=== PATIENT | male | born 1950 | race Caucasian/White ===

== ENCOUNTER → 2024-02-13 12:14 | Outpatient (REF) | payer OTHER, SELFPAY ==
[2024-02-13 13:36] LABS: % Basophils 0.4 % (0-2); % Eosinophils 7.7 % (0-6); % Immature Granulocytes 0.5 % (0-0.5); % Lymphocytes 21.8 % (20.5-51.1); % Monocytes 16.8 % (1.7-9.3); % Neutrophils 52.8 % (42.2-75.2); Absolute Eosinophils 0.6 10^3/uL (0-0.7); Absolute Lymphocytes 1.6 10^3/uL (1.2-3.4); Absolute Monocytes 1.3 10^3/uL (0.1-0.6); Absolute Neutrophils 3.9 10^3/uL (1.4-6.5); Hematocrit 24.6 % (39.0-52.0); Hemoglobin 7.5 g/dL (13.0-18.0); Mean Corp Hgb Conc. 30.5 g/dL (33.0-37.0); Mean Corpuscular Hgb 24.8 pg (27.0-31.0); Mean Corpuscular Volume 81.2 fL (80.0-94.0); Mean Platelet Volume 10.2 fL (7.4-10.4); Nucleated Red Blood Cells % 0 % (-); Platelet Count 228 10^3/uL (130-400); Red Blood Cell Count 3.03 10^6/uL (4.70-6.10); Red Cell Dist. Width 18.6 % (11.5-14.5); White Blood Cell Count 7.4 10^3/uL (4.8-10.8)
[2024-02-13 14:02] LABS: ALT (SGPT) 30 U/L (0-50); AST (SGOT) 42 U/L (17-59); Albumin 3.7 g/dl (3.5-5.0); Alkaline Phosphatase 71 U/L (38-126); Blood Urea Nitrogen 31 mg/dl (9-20); Calcium 8.9 mg/dl (8.4-10.2); Carbon Dioxide 25 mmol/L (22-30); Chloride 105 mmol/L (98-107); Glucose 92 mg/dl (70-99); HDL Cholesterol 92 mg/dl; LDL Cholesterol, Calculated 46 mg/dl; Potassium 4.6 mmol/L (3.5-5.1); Sodium 136 mmol/L (135-145); Total Bilirubin 0.5 mg/dl (0.2-1.3); Total Cholesterol 154 mg/dl (50-199); Total Protein 6.3 g/dl (6.3-8.2); Triglyceride 80 mg/dl (10-149); Very Low Density Lipoprotein 16 mg/dl (0-30); eGFR 53.07
[2024-02-13 14:27] LABS: TSH Reflex To Free T4 1.17 uIU/ml (0.47-4.68)
== END ==
LOC: REG 12:14
PROVIDERS: ATTENDING PHYSICIAN Internal Medicine Cardiovascular Disease; FAMILY PHYSICIAN Internal Medicine
DX: I25.118 Atherosclerotic heart disease of native coronary artery with other forms of angina pectoris (principal); I50.20 Unspecified systolic (congestive) heart failure; I48.0 Paroxysmal atrial fibrillation; R53.83 Other fatigue; R23.1 Pallor
CPT/HCPCS: 36415; 80053; 80061; 84443; 85025

== ENCOUNTER 2024-02-13 22:13 | Inpatient (IN) | payer OTHER, SELFPAY ==
[2024-02-13] VITALS (9 sets, daily range): BP systolic 106–151; BP diastolic 66–81; BMI 26.9
[2024-02-13] MEDS: PROTONIX IV 40 MG IV (19:40)
[2024-02-13 19:52] LABS: % Basophils 0.3 % (0-2); % Eosinophils 6.6 % (0-6); % Immature Granulocytes 0.3 % (0-0.5); % Lymphocytes 25.9 % (20.5-51.1); % Monocytes 16.7 % (1.7-9.3); % Neutrophils 50.2 % (42.2-75.2); Absolute Eosinophils 0.4 10^3/uL (0-0.7); Absolute Lymphocytes 1.7 10^3/uL (1.2-3.4); Absolute Monocytes 1.1 10^3/uL (0.1-0.6); Absolute Neutrophils 3.2 10^3/uL (1.4-6.5); Hematocrit 22.6 % (39.0-52.0); Hemoglobin 7.2 g/dL (13.0-18.0); Mean Corp Hgb Conc. 31.9 g/dL (33.0-37.0); Mean Corpuscular Hgb 25.3 pg (27.0-31.0); Mean Corpuscular Volume 79.3 fL (80.0-94.0); Mean Platelet Volume 9.6 fL (7.4-10.4); Nucleated Red Blood Cells % 0 % (-); Platelet Count 202 10^3/uL (130-400); Red Blood Cell Count 2.85 10^6/uL (4.70-6.10); Red Cell Dist. Width 18.5 % (11.5-14.5); White Blood Cell Count 6.4 10^3/uL (4.8-10.8)
--- NOTE | 2024-02-13 20:00 | ED.GENMED ---
History of Present Illness
General
Chief Complaint: Abnormal Lab Value
Source: patient and family
Exam Limitations: none
Time Seen by Provider: 02/13/24 18:51
Nursing documentation reviewed up to this point in time: agreed with
Travel History
Have you had any contact with someone who has COVID-19?: No
Do you have any symptoms of coronavirus? Fever > 100 degrees, chills, cough, shortness of breath, sore throat, loss of taste or smell, muscle aches, or headache?: No
History of Present Illness
History of Present Illness:
74-year-old male with a past medical history of hypertension, hyperlipidemia, CAD status post stent, atrial fibrillation, COPD who presents to the emergency room accompanied by his family for evaluation of fatigue and shortness of breath�was found
to have anemia by outpatient lab work. Patient reports she has had increased fatigue and paleness, shortness of breath for the past few weeks. 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
blood work and today he received a call that he was anemic. Referred to the emergency room. He has not had any chest pain. He has not had any abdominal pain. He has not had any black or bloody stools. He has not noticed any other bleeding. He
does take multiple blood thinners including Plavix and Eliquis.
Past History
Past History
ED Past Medical History: CAD, HTN and Hypothyroidism
ED Past Surgical History: Cardiac and Orthopedic (Total left knee)
Social History
Tobacco: Non-smoker
Alcohol: None
Drug: None
Personal:
Living: with family
Employment: Retired
Review of Systems
Review of Systems
All Other Systems: ROS reviewed and negative except as documented in HPI and ROS
Constitutional: Reports fatigue; Denies fever
Respiratory: Reports trouble breathing; Denies cough
Cardiac: Denies chest pain, palpitations or syncope
ABD/GI: Denies abdominal pain, nausea, vomiting, diarrhea, bloody stools or black stools
: Denies flank pain or bleeding
Musculoskeletal: Denies neck pain or back pain
Neurological: Denies headache, weakness or numbness
Phy Exam
Physical Exam
Physical Exam:
General: Awake, alert, oriented x3; no acute distress
Head: Normocephalic, atraumatic
Eyes: Pale conjunctiva
Throat: Airway intact, handling secretions
Neck: Trachea midline, supple without meningismus
Lungs: Clear to auscultation bilaterally, no wheezing, rales, rhonchi
Heart: Regular rate and rhythm, no murmurs, gallops, or rubs
Abd: Soft, non distended, nontender
Rectal: Dark brown stool, Hemoccult positive
Neuro: Cranial nerves grossly intact, speech fluid
Skin: Pale, no rash
Extremities: No edema in extremities, equal pulses in all extremities
Scores
Heart Failure Risk
Heart Failure Risk Score: Not Applicable
Heart Score for Chest Pain Patients
STEMI patient?: Not applicable
Withdrawal Assessment of Alcohol
Withdrawal Assessment Completed?: Not applicable
Course
Orders/Labs/Results
Orders:
Orders
02/13/24 17:51
Type+Screen Urgent
02/13/24 19:23
* Blood Bank Products Urgent
Blood Bank Products: *Packed RBC Leuko(PRBC's)
Quantity: 1
Transfuse Today: Yes
Reason: Anemia
Pantoprazole [Protonix IV] 40 mg IV NOW STA
02/13/24 19:38
Complete Blood Count/With Diff Urgent
Comprehensive Metabolic Panel Urgent
Ferritin Urgent
Fibrinogen Urgent
Folate Urgent
Haptoglobin [S] Urgent
Iron Urgent
Total Iron Binding Urgent
Vitamin B12 Urgent
Abnormal Lab Results
02/13/24 02/13/24
17:51 19:38
RBC 2.85 L 10^6/uL
(4.70-6.10)
Hgb 7.2 L g/dL
(13.0-18.0)
Hct 22.6 L %
(39.0-52.0)
MCV 79.3 L fL
(80.0-94.0)
MCH 25.3 L pg
(27.0-31.0)
MCHC 31.9 L g/dL
(33.0-37.0)
RDW 18.5 H %
(11.5-14.5)
Absolute Monos (auto) 1.1 H 10^3/uL
(0.1-0.6)
Monocytes % 16.7 H %
(1.7-9.3)
Eosinophils % 6.6 H %
(0-6)
Crossmatch IS Only See Detail
02/13/24 19:38
Vital Signs
Initial and Last Documented VS:
Initial Vital Signs
Temp Pulse Resp BP Pulse Ox
36.9 C 70 16 106/66 99
02/13/24 17:37 02/13/24 17:37 02/13/24 17:37 02/13/24 17:37 02/13/24 17:37
Last Documented Vital Signs
Temp Pulse Resp BP Pulse Ox
36.9 C 70 16 106/66 96
02/13/24 17:37 02/13/24 17:37 02/13/24 17:37 02/13/24 17:37 02/13/24 19:45
MDM/Problems Addressed
Differential Diagnosis Includes:
Symptomatic anemia�could be secondary to iron deficiency, B12/folate deficiency, slow GI bleeding,etc
MDM/Problems Addressed:
74-year-old male presents for progressive fatigue and shortness of breath over the past few weeks, found to be anemic as an outpatient on lab work. Vital signs are normal. Exam as above. We placed IV labs sent off including a CBC which confirmed
anemia at 7.2�this is decreased from a value of 7.5 on his outpatient labs yesterday; last hemoglobin for comparison was in September 2023 with a hemoglobin of 11. Sent CMP and type and screen. Will add iron studies, B12/folate, hemolysis labs.
Will plan to transfuse 1 unit of PRBCs for symptomatic anemia. Will treat with IV Protonix given his positive Hemoccult. Will admit for further evaluation and treatment. Discussed case with hospitalist.
Chronic conditions affecting care:
Cardiac history requiring multiple blood thinners�this complicates GI bleed and anemia
Acute Exacerbation and/or Progression of Chronic Illness:
Acute on chronic anemia managed with blood transfusion
*Pulse Oximetry
Patient hypoxic: no
*Critical Care Note
Total Time (30-74mins, 75-104mins- exclusive of procedures): Not Applicable
Data Reviewed
Source: patient, records and family
Patient Management
Discussion with other providers: Hospitalist (Discussed with hospitalist)
Escalation/DeEscalation of care consider admission/obs:
Admission indicated
ED Attending Note
-
Portions of this chart may have been created with voice recognition software.� Occasional wrong word or��sound alike� substitutions may have occurred due to the inherent limitations of voice recognition software.
Discharge Plan
Departure
Patient Disposition: Admit
Date of Disposition: 02/13/24
Time of Disposition: 20:10
Admit to doctor: Pradeep
Presentation/result/management discussed w/ accepting MD/DO: Hospitalist
Discharge Problem:
Acute on chronic anemia, GI bleed
Prescriptions:
No Action
triamcinolone acetonide [Nasacort] 10.8 ML aerosol,spray
1 spray intranasal PRN PRN (Reason: allergies)
nitroglycerin 0.4 MG tablet, sublingual
0.4 mg sublingual [id number] PRN (Reason: chest pain) Qty: 25 2RF
isosorbide mononitrate 30 mg Tablet Extended Release 24 Hr
30 mg PO DAILY
montelukast [Singulair] 10 mg Tablet
10 mg PO DAILY
acetaminophen [Tylenol] 325 mg Tablet
650 mg PO Q4HPRN PRN (Reason: mild pain)
atorvastatin 40 mg Tablet
40 mg PO QPM 30 Days Qty: 30 2RF
aspirin 81 mg Tablet,Chewable
81 mg PO DAILY 7 Days Qty: 7 0RF
Rx Instructions:
TAKE FOR 1 WEEK AND THEN STOP
clopidogrel 75 mg Tablet
75 mg PO DAILY 30 Days Qty: 30 2RF
amiodarone 200 mg Tablet
200 mg PO DAILY Qty: 0 0RF
metoprolol succinate [Toprol XL] 50 mg tablet extended release 24 hr
50 mg PO QPM Qty: 0 0RF
Eliquis 5 mg Tablet
5 mg PO BID Qty: 0 0RF
fluticasone furoate-vilanterol [Breo Ellipta] 100-25 mcg/dose Blister With Device
1 inh INHALATION R DAILY Qty: 0 0RF
furosemide [Lasix] 40 mg tablet
40 mg PO DAILY Qty: 30 2RF
pantoprazole 40 mg Tablet,Delayed Release (Dr/Ec)
40 mg PO DAILY 30 Days Qty: 30 2RF
Referrals:
Sandhya Underwood DO [Family Provider] -
Interventions
Interventions:
*Risk Screen - Suicide Last Done: 02/13/24 17:42
*General Assessment Last Done: 02/13/24 17:42
*Neglect/Abuse Screening Last Done: 02/13/24 17:42
ED- Fall Risk Assessment Last Done: 02/13/24 19:49
Discharge Date and Time
Print Language: JORDANIAN
[2024-02-13 20:02] LABS: Fibrinogen 422 MG/DL (199-459)
[2024-02-13 20:06] LABS: ALT (SGPT) 28 U/L (0-50); AST (SGOT) 43 U/L (17-59); Albumin 3.7 g/dl (3.5-5.0); Alkaline Phosphatase 79 U/L (38-126); Blood Urea Nitrogen 34 mg/dl (9-20); Calcium 8.9 mg/dl (8.4-10.2); Carbon Dioxide 22 mmol/L (22-30); Chloride 105 mmol/L (98-107); Estimated Creatinine Clearance 40 ml/min; Glucose 86 mg/dl (70-99); Iron 31 ug/dl (49-181); Potassium 4.3 mmol/L (3.5-5.1); Sodium 135 mmol/L (135-145); Total Bilirubin 0.6 mg/dl (0.2-1.3); Total Protein 6.3 g/dl (6.3-8.2); eGFR 39.25
--- NOTE | 2024-02-13 20:09 | HPS.HSE ---
Family Physician
-
Family Physician: Sandhya Underwood
Chief Complaint
-
Fatigue
History of Present Illness
74-year-old male complaining of fatigue for the past several months. He had a routine cardiology appointment yesterday where his reported that he looked pale to her. He had outpatient lab work done yesterday and was referred to the ER for
anemia. He denies black or bloody stool although was heme positive brown in the emergency department. He denies history of endoscopy or colonoscopy/hemorrhoids. He denies headache, sore throat, chest pain, palpitations, shortness of breath,
cough, abdominal pain, nausea, vomiting, diarrhea, blood in urine or stool. He has
PMH A-fib on Eliquis, CAD/CABG January 2020 x 3 vessel, [place] with circumflex stent 08/12/2022, HTN, HLD, mitral regurg, cardiomyopathy EF 44-55%, COPD, gout, osteoarthritis, BEAVER
Medical History
Past Medical History
Past Medical History: Reports Other
Additional Past Medical History:
A-fib on Eliquis,
CAD/CABG January 2020 x 3 vessel,
[place]
HTN
HLD
mitral regurg
cardiomyopathy EF 44-55%
COPD
gout
osteoarthritis
BEAVER
Past Surgical History: Reports Other
Additional Past Surgical History:
CABG x 3 vessel January 2020
Cardiac stent
Left knee replacement 04/11/2022
Right knee replacement 06/21/2022
Bilateral cataract extraction
Social History
Tobacco: Non-smoker
Alcohol: None
Drug: None
Family History
Family History: Other (Father CVA mother age 82 breast CA)
Allergies / Home Medications
Allergies reflects when Allergies were last updated in [facility].
Home Medications with original date entered in [facility]
Allergy/Medication List:
Allergies
Allergy/AdvReac Type Severity Reaction Status Date / Time
valsartan [From Diovan] Allergy Hives Verified 02/13/24 17:35
Home Medications
isosorbide mononitrate 30 mg tablet,extended release 24 hr 30 mg PO DAILY ANGINA 03/30/22
montelukast 10 mg tablet (Singulair) 10 mg PO HSPRN PRN allergies 03/30/22
apixaban 5 mg tablet (Eliquis) 5 mg PO BID Arrhythmia #0 tabs 08/22/22
fluticasone furoate 100 mcg-vilanterol 25 mcg/dose inhalation powder (Breo Ellipta) 1 inh inhalation R DAILY Lung/breathing issues #0 ea 08/22/22
furosemide 40 mg tablet (Lasix) 40 mg PO DAILY Heart failure #30 tabs 08/23/22
pantoprazole 40 mg tablet,delayed release 40 mg PO DAILY Gastrointestinal issue 30 days #30 tabs 08/23/22
Vitamin B Complex 50 1 tab PO Q48H@0800 02/13/24
ascorbic acid (vitamin C) 1,000 mg tablet (Vitamin C) 1,000 mg PO Q48H@0800 02/13/24
aspirin 81 mg tablet,delayed release 81 mg PO HS 02/13/24
atorvastatin 40 mg tablet 40 mg PO SUWE@2200 High cholesterol 02/13/24
cholecalciferol (vitamin D3) 50 mcg (2,000 unit) tablet 50 mcg PO Q48H@0800 02/13/24
ezetimibe 10 mg tablet 10 mg PO DAILY 02/13/24
furosemide 40 mg tablet 60 mg PO DAILY PRN if weight>191 lbs 02/13/24
metoprolol succinate 50 mg tablet,extended release 24 hr (Toprol XL) 50 mg PO HS Arrhythmia 02/13/24
spironolactone 25 mg tablet 25 mg PO DAILY 02/13/24
therapeutic multivitamin 1 tab PO Q48H@0800 02/13/24
triamcinolone acetonide 55 mcg nasal spray aerosol (Nasacort) 2 spray intranasal HSPRN PRN allergies 02/13/24
vitamin A 15 mg PO Q48H@0800 02/13/24
vitamin E (dl, acetate) 180 mg (400 unit) capsule 180 mg PO Q48H@0800 02/13/24
Review of Systems
-
History Source: Patient and Family ( at bedside)
A 12 point ROS was completed and negative except as noted: Yes
Constitutional: Reports Fatigue; Denies Fever or Chills
EENT: Denies Sore Throat or Runny Nose
Respiratory: Denies Cough or Trouble Breathing
Cardiac: Denies Chest Pain, Diaphoresis, Palpitations or Syncope
Abdomen/GI: Denies Abdominal Pain, Nausea, Vomiting, Diarrhea, Constipated, Bloody Stools or Black Stools
: Denies Dysuria, Frequency, Flank Pain, Incontinence, Difficulty Voiding or Urgency
Musculoskeletal: Denies Joint Pain or Edema
Skin: Denies Itching or Rash
Neurological: Denies Dizzy, Headache or Weakness
Endocrine: Reports No Symptoms
Hematologic/Lymphatic: Reports No Symptoms
Psych: Reports Calm
Physical Exam
Vital Signs
Vital Signs
Temp Pulse Resp BP Pulse Ox
98.4 F 70 16 106/66 96
02/13/24 17:37 02/13/24 17:37 02/13/24 17:37 02/13/24 17:37 02/13/24 19:45
Physical Exam
General: Comfortable and Conversant; No Pain, Fever or Chills
HEENT: NormoCephalic, Anicteric, PERRLA, No Ptosis and Other (Pale conjunctiva)
Respiratory: Clear; No Wheezes, Rales or Rhonchi
Cardiac: S1/S2, Regular Rhythm and Murmur (3/6 systolic murmur); No Rub, Gallop or Peripheral Edema
Breast: Deferred by me
GI: Soft, Non Distended, Normal Bowel Sounds and No Hepatosplenomegaly
Rectal: Deferred by Provider
Musculoskeletal: No Clubbing, No Cyanosis and No Edema
Skin: Warm, Dry and Other (Pale in color); No Rash or Jaundice
Neuro: AO x 3, No Motor Deficits, Nonfocal/grossly intact, Cranial Nerves Intact and No Sensory Deficits; No Slurred Speech or Facial Droop
Psych: Calm
Laboratory Results
-
02/13/24 19:38
02/13/24 19:38
Laboratory Results
Total Bilirubin 0.6 mg/dl (0.2-1.3) 02/13/24 19:38
AST 43 U/L (17-59) 02/13/24 19:38
ALT 28 U/L (0-50) 02/13/24 19:38
Alkaline Phosphatase 79 U/L (38-126) 02/13/24 19:38
Impression/Plan
-
Impression/plan:
Admit to telemetry
#Symptomatic anemia/GI bleed on Eliquis/Plavix
Heme positive brown stool
Hgb 7.2/MCV 79.3 prior 11.27 September 2022
-Check iron panel, B12, folate
-Type and screen, blood consent obtained in ER
-Transfuse 1 unit PRBC
-Follow CBC
#Iron deficiency anemia
-Iron 31, iron sat 6%
-IV Ferrlecit in a.m.
#Heme positive brown stool with anemia concern for GI bleed
-Hold Eliquis,
-Transfuse 1 unit PRBC
-IV PPI twice daily
-Consult GI
#ATUL on CKD 3A
Creat 1.8 was 1.4 earlier today 12:27 PM)
-IV NSS 80 cc/hr x 1 liter
#A-fib paroxysmal
-Hold Eliquis
-Continue amiodarone
-Continue Toprol XL with hold parameters
#Chronic CHF/ chronic Cardiomyopathy EF 44-55%
i/o , daily weight
Hold Lasix, spironolactone due to current hypotension
2D echo 01/21/2023: EF 45-50%, mild reduced LVSF, mild inferior and anterior septal hypokinesis, severe left atrial enlargement. Moderate MR
#HTN-benign
BP 106/66
Hold Imdur, Lasix, spironolactone
#CABG x 3 vessel January 2020
#Cardiac stent circumflex 08/12/2022
-Hold aspirin ,Eliquis,
-Continue atorvastatin 40 mg every afternoon
-Hold Imdur 30 mg daily given soft BP 106 systolic
# HLD
-Continue statin
#Mitral regurg hx
#COPD-no acute exacerbation
-Continue Breo Ellipta
Other PMH:
Gout
Osteoarthritis
BEAVER
DVT prophylaxis
SCDs, hold Eliquis
Full code
[2024-02-13 20:15] LABS: Percent Saturation 6 % (20-50); Total Iron Binding Capacity 503 ug/dl (261-462)
[2024-02-13 20:41] LABS: Ferritin 7.1 ng/ml (17.9-464.0)
--- NOTE | 2024-02-13 20:50 | W.PN.UPDATE ---
Update Note
Progress Note Update
This is an addendum to the H&P written by ABHI De La Rosa on 02/13/2024.
Patient seen examined independently with BULLET [employer]IC[employer] MIXER.
74-year-old male past medical history of CAD status post CABG x 2, ischemic cardiomyopathy, chronic HFrEF, moderate to severe mitral regurgitation, paroxysmal atrial fibrillation on Eliquis, CKD stage II, hypothyroidism, COPD, presenting for fatigue
and shortness of breath secondary to anemia found on outpatient labs. Denies chest pain, abdominal pain, black or bloody stools.
Stool is brown and heme positive. Hemoglobin of 7.2 from baseline of 9-11 previously. Iron studies compatible with iron deficiency anemia. Labs also show ATUL with creatinine 1.8. 1 unit of blood. B12 and folate pending. Patient likely has
occult GI blood loss due to Eliquis/Plavix. Hold Plavix, Eliquis. IV Protonix 40 twice daily. Clear liquid diet, n.p.o. past midnight. GI consulted. IV iron for tomorrow.
IV fluids for ATUL. Hold Lasix.
[2024-02-13 21:12] LABS: Folate > 20.0 ng/ml (2.76-20); Vitamin B12 573 pg/ml (239-931)
[2024-02-13] MEDS: TOPROL XL 50 MG PO (22:57)
[2024-02-13] MEDS: NSS 1000 IV (22:58)
--- NOTE | 2024-02-13 23:00 | PTCARENOTE ---
Received patient from ED via stretcher accompanied by ED RN. Patient ambulated self into bed without difficulty. Nursing assessment completed and as documented. 1 unit PRBC infusing via R PIV, transfusion completed see TAR for documentation.
Oriented to room, instructed use of call corona and within reach, care ongoing.
[2024-02-14] VITALS (8 sets, daily range): BP systolic 114–158; BP diastolic 65–87; PULSE 64–65; O2SAT 98; BMI 26.5
[2024-02-14 05:31] LABS: % Basophils 0.3 % (0-2); % Immature Granulocytes 0.5 % (0-0.5); % Lymphocytes 28.4 % (20.5-51.1); % Monocytes 15.9 % (1.7-9.3); % Neutrophils 47.9 % (42.2-75.2); Absolute Eosinophils 0.5 10^3/uL (0-0.7); Absolute Lymphocytes 1.8 10^3/uL (1.2-3.4); Absolute Neutrophils 3.1 10^3/uL (1.4-6.5); Hematocrit 24.2 % (39.0-52.0); Hemoglobin 7.5 g/dL (13.0-18.0); Mean Corpuscular Hgb 25.4 pg (27.0-31.0); Mean Platelet Volume 9.6 fL (7.4-10.4); Nucleated Red Blood Cells % 0 % (-); Platelet Count 176 10^3/uL (130-400); Red Blood Cell Count 2.95 10^6/uL (4.70-6.10); White Blood Cell Count 6.4 10^3/uL (4.8-10.8)
[2024-02-14 06:07] LABS: ALT (SGPT) 24 U/L (0-50); AST (SGOT) 36 U/L (17-59); Alkaline Phosphatase 65 U/L (38-126); Blood Urea Nitrogen 32 mg/dl (9-20); Calcium 8.7 mg/dl (8.4-10.2); Carbon Dioxide 22 mmol/L (22-30); Chloride 109 mmol/L (98-107); Estimated Creatinine Clearance 48 ml/min; Glucose 97 mg/dl (70-99); Potassium 4.1 mmol/L (3.5-5.1); Sodium 137 mmol/L (135-145); Total Bilirubin 1.7 mg/dl (0.2-1.3); Total Protein 5.5 g/dl (6.3-8.2); eGFR 48.85
[2024-02-14] MEDS: B COMPLEX w/VITAMIN C 1 CAPLET PO (07:50)
[2024-02-14] MEDS: PROTONIX IV 40 MG IV ×2 (07:51→20:35)
[2024-02-14] MEDS: THERAGRAN 1 TABLET PO (07:51)
[2024-02-14] MEDS: ZETIA 10 MG PO (07:51)
[2024-02-14] MEDS: VITAMIN C 1000 MG PO (07:51)
[2024-02-14] MEDS: NSS (PRESERVATIVE FREE) 10 ML IV ×2 (07:51→20:36)
[2024-02-14] MEDS: VITAMIN D3 (cholecalciferol) 50 MCG PO (07:51)
[2024-02-14 08:29] LABS: Direct Bilirubin 0.4 mg/dl (0.0-0.4)
--- NOTE | 2024-02-14 09:04 | CON.GI ---
Addendum entered and electronically signed by Coco Chi Do, MD 02/14/24 16:30:
I saw and examined the patient.
The PRICE CHANGER's note was reviewed and I agree with the note.
Comment: Nj is a 74yo M with h/o CABG x3 and PCI 07/2022 on eliquis for afib who was admitted for symptomatic iron def anemia with brown heme + stools. No overt black or red blood in stools. VSS NTTP NABS. Labs reviewed with iron def anemia.
normal vit b12 and folate
Impression
- symptomatic iron def anemia with heme + stools
no prior EGD/colon
differential includes ectasias, ulcer or occult malignancy/polyps
- afib on AC
- CABG
- CAD s/p stent
- HTN
- COPD
Recommendations
- Repeat H/H stable after 1u PRBC transfusion
- IV iron x1 today
- Adv to regular diet
- Appreciate cardiology recs
- Hold eliquis, c/w ASA 81mg daily
- Plan for EGD/colonoscopy outpatient basis with Dr Benitez 02/17 at 1pm. prep escribed and instructions emailed. I personally spoke to his and patient to go over prep instructions. They expressed understanding
- Ok from GI perspective for hosp d/c today with above close FU
Above d/w hospitalist pt family and cardiology.
62mins total spent with pt counseling and coordinating above care
Original Note:
Consultation
-
Date/Time Consultation Requested: 02/13/242199
Date/Time Consultation Performed: 02/14/24 0930
Requesting Provider: Catina MCELROY
Performing Provider: Dr. Valerio / Samira Justin PA-C
Reason for Consultation: anemia
Medical History
Chief Complaint / HPI
Chief Complaint: anemia
History of Present Illness:
This is a 74 year old male with a past medical history of atrial fibrillation (on Eliquis), CAD/TX (s/p CABGx3 and stent placement), HTN, hyperlipidemia, CHF, cardiomyopathy, COPD, osteoarthritis, and gout who presented to the hospital with anemia
seen on outpatient labs. Hemoglobin 7.2 in the ER, was 11.5 in September 2023. He does complain of fatigue and shortness of breath. CBC also showed microcytic indices and iron studies were all consistent with iron-deficiency anemia. He was transfused
1 unit PRBCs. He denies any melena or hematochezia; stool noted to be brown, heme positive. He denies any abdominal pain, nausea, vomiting, heartburn/reflux, diarrhea, constipation or weight loss. He has never had an endoscopy or colonoscopy. There
is no known family history of GI malignancies.
Past Medical History
Past Medical History: CAD, CHF, COPD, HTN, Hypercholesterolemia, [place] and Other (atrial fibrillation (on Eliquis), cardiomyopathy, osteoarthritis, gout)
Past Surgical History: Other (CABGx3 January 2020, cardiac stent 07/2022, bilateral knee replacements, cataracts)
Social History
Tobacco: Non-Smoker
Alcohol: Daily (1 beer each night)
Drug: None
Personal:
Living: With Family
Family History
Family History: Other (No family history of GI malignancies)
Allergies / Home Medications
Allergy/AdvReac Type Severity Reaction Status Date / Time
valsartan [From Diovan] Allergy Hives Verified 02/13/24 17:35
�Medication �Instructions �Recorded
isosorbide mononitrate 30 mg 30 mg PO DAILY ANGINA 03/30/22
tablet,extended release 24 hr
montelukast 10 mg tablet 10 mg PO HSPRN PRN allergies 03/30/22
(Singulair)
apixaban 5 mg tablet (Eliquis) 5 mg PO BID Arrhythmia #0 tabs 08/22/22
fluticasone furoate 100 1 inh inhalation R DAILY 08/22/22
mcg-vilanterol 25 mcg/dose Lung/breathing issues #0 ea
inhalation powder (Breo Ellipta)
furosemide 40 mg tablet (Lasix) 40 mg PO DAILY Heart failure #30 08/23/22
tabs
pantoprazole 40 mg tablet,delayed 40 mg PO DAILY Gastrointestinal 08/23/22
release issue 30 days #30 tabs
Vitamin B Complex 50 1 tab PO Q48H@0802/13/24
ascorbic acid (vitamin C) 1,000 mg 1,000 mg PO Q48H@0802/13/24
tablet (Vitamin C)
aspirin 81 mg tablet,delayed 81 mg PO HS 02/13/24
release
atorvastatin 40 mg tablet 40 mg PO SUWE@2200 High cholesterol 02/13/24
cholecalciferol (vitamin D3) 50 50 mcg PO Q48H@0802/13/24
mcg (2,000 unit) tablet
ezetimibe 10 mg tablet 10 mg PO DAILY 02/13/24
furosemide 40 mg tablet 60 mg PO DAILY PRN if weight>191 02/13/24
lbs
metoprolol succinate 50 mg 50 mg PO HS Arrhythmia 02/13/24
tablet,extended release 24 hr
(Toprol XL)
spironolactone 25 mg tablet 25 mg PO DAILY 02/13/24
therapeutic multivitamin 1 tab PO Q48H@0802/13/24
triamcinolone acetonide 55 mcg 2 spray intranasal HSPRN PRN 02/13/24
nasal spray aerosol (Nasacort) allergies
vitamin A 15 mg PO Q48H@0802/13/24
vitamin E (dl, acetate) 180 mg 180 mg PO Q48H@0802/13/24
(400 unit) capsule
Review of Systems
-
History Source: Patient
All other systems: A 12 pt ROS was Negative except as stated above in HPI
Vital Signs
Temp Pulse Resp BP Pulse Ox
98.7 F 61 16 126/75 95
02/14/24 07:30 02/14/24 07:30 02/14/24 07:30 02/14/24 07:30 02/14/24 07:30
Physical Exam
Exam
General: Well Developed, Well Nourished and No Apparent Distress
Respiratory: Clear
Cardiac: Regular Rhythm
GI: Soft, Non Tender, Non Distended and Normal Bowel Sounds
Rectal: Other (brown, heme positive on ER exam)
Skin: Warm and Dry
Neuro: AO x 3
Psych: Calm
Results
WBC 6.4 10^3/uL (4.8-10.8) 02/14/24 05:14
Hgb 7.5 g/dL (13.0-18.0) L 02/14/24 05:14
Hct 24.2 % (39.0-52.0) L 02/14/24 05:14
MCV 82.0 fL (80.0-94.0) 02/14/24 05:14
Plt Count 176 10^3/uL (130-400) 02/14/24 05:14
Absolute Neuts (auto) 3.1 10^3/uL (1.4-6.5) 02/14/24 05:14
Sodium 137 mmol/L (135-145) 02/14/24 05:14
Potassium 4.1 mmol/L (3.5-5.1) 02/14/24 05:14
Chloride 109 mmol/L (98-107) H 02/14/24 05:14
Carbon Dioxide 22 mmol/L (22-30) 02/14/24 05:14
BUN 32 mg/dl (9-20) H 02/14/24 05:14
Creatinine 1.5 mg/dL (0.7-1.3) H 02/14/24 05:14
Calcium 8.7 mg/dl (8.4-10.2) 02/14/24 05:14
Total Bilirubin 1.7 mg/dl (0.2-1.3) H D 02/14/24 05:14
AST 36 U/L (17-59) 02/14/24 05:14
ALT 24 U/L (0-50) 02/14/24 05:14
Alkaline Phosphatase 65 U/L (38-126) 02/14/24 05:14
Diagnostic Image Results:
Prior GI Procedures:
EGD: never
Colonoscopy: never
Assessment / Plan
-
This is a 74 year old male with a past medical history of atrial fibrillation (on Eliquis), CAD/TX (s/p CABGx3 and stent placement), HTN, hyperlipidemia, CHF, cardiomyopathy, COPD, osteoarthritis, and gout who presented to the hospital with anemia
seen on outpatient labs. Hemoglobin 7.2 in the ER, was 11.5 in September 2023. He does complain of fatigue and shortness of breath. CBC also showed microcytic indices and iron studies were all consistent with iron-deficiency anemia. He was transfused
1 unit PRBCs. He denies any melena or hematochezia; stool noted to be brown, heme positive. He denies any abdominal pain, nausea, vomiting, heartburn/reflux, diarrhea, constipation or weight loss. He has never had an endoscopy or colonoscopy. There
is no known family history of GI malignancies. Last dose of Eliquis: 02/13/24 in the AM.
IMPRESSION / PLAN:
Iron-deficiency anemia, heme positive stools on Eliquis and ASA, suspect GI bleed
-s/p transfusion 1 unit PRBCs on 02/12
-Hgb 7.5 today, on admission 02/12 was 7.2
-continue to trend hemoglobin; transfuse if falls below 7
-IV iron has been ordered
-Hold Eliquis - last dose was 02/12 AM
-plan for EGD/colonoscopy - tentatively planned as outpatient on 02/18/24
-will request cardiac risk stratification prior to endoscopic procedures with Eliquis hold
Other medical problems managed as per hospitalist. We will follow.
-
-
Thank you for consultation and allowing me to participate in the patient's care. Please call the education supervisor GI physician during the after hours with any questions or concerns.
--- NOTE | 2024-02-14 10:04 | PTOTSP ---
PATIENT ABLE TO MOBILIZE INDEPENDENTLY ON LEVEL SURFACES WELL ELEVATIONS WITH NO COMPLAINTS OF LIGHTHEADEDNESS, DIZZINESS OR SHORTNESS OF BREATH. VITALS STABLE. RN AWARE. PATIENT REQUIRING NO FURTHER ACUTE CARE SKILLED P.T. AT THIS TIME.
ENCOURAGED PATIENT TO CONTINUE AMBULATING IN THE HALLS. WILL DISCHARGE FROM P.T. SERVICES.
--- NOTE | 2024-02-14 10:33 | W.PN.HOSP.TC ---
Addendum entered and electronically signed by Lai Neri MD 02/14/24 16:39:
plan to resume lasix and spironolactone tomorrow if bp is stable
Original Note:
Today's Communication/Plan
-
monitor hgb, repeat cbc today and tomorrow - trend
cards consulted for clearance of low risk procedure and consideration of holding Eliquis +/- ASA
Assessment / Plan
Assessment / Plan
Physical Exam
General: Comfortable and Conversant; No Pain, Fever or Chills
HEENT: NormoCephalic, Anicteric, PERRLA, No Ptosis
Respiratory: Clear; No Wheezes, Rales or Rhonchi
Cardiac: S1/S2, Regular Rhythm and Murmur (3/6 systolic murmur); No Rub, Gallop or Peripheral Edema
Breast: Deferred by me
GI: Soft, Non Distended, Normal Bowel Sounds and No Hepatosplenomegaly
Rectal: Deferred by Provider
Musculoskeletal: No Clubbing, No Cyanosis and No Edema
Skin: Warm, Dry; No Rash or Jaundice
Neuro: AO x 3, No Motor Deficits, Nonfocal/grossly intact, Cranial Nerves Intact and No Sensory Deficits; No Slurred Speech or Facial Droop
Psych: Calm
#Symptomatic anemia/GI bleed on Eliquis
#Iron Deficiency Anemia
Heme positive brown stool
-Transfuse 1 unit PRBC
-Follow CBC - repeat today
-IV Ferrlecit in a.m.
-Plan to hold Eliquis, plan for EGD/C-Scope next week
-Cards consulted as requested by GI for clearance of EGD/Scope and holding of eliquis
-IV PPI twice daily
-GI on board
#ATUL on CKD 3A
-possible -prerenal
-resolved s/p resuscitation
#Elevated Bili
-Elevated indirect
-possible gilberts, although f/u hapto/ldh
#A-fib paroxysmal
-Hold Eliquis
-Continue amiodarone
-Continue Toprol XL with hold parameters
#Chronic CHF/ chronic Cardiomyopathy EF 44-55%
i/o , daily weight
Hold Lasix, spironolactone as was hypotensive
-anticipate resuming soon if hgb remains stable
2D echo 01/21/2023: EF 45-50%, mild reduced LVSF, mild inferior and anterior septal hypokinesis, severe left atrial enlargement. Moderate MR
#HTN-benign
BP 106/66
Holding Imdur, Lasix, spironolactone - restart slowly if bps and hgb remain stable
#CABG x 3 vessel January 2020
#Cardiac stent circumflex 08/12/2022
-Hold aspirin ,Eliquis,; - defer to cards on restarting ASA
-Continue atorvastatin 40 mg every afternoon
-Hold Imdur 30 mg daily given soft BP 106 systolic
# HLD
-Continue statin
#Mitral regurg hx
#COPD-no acute exacerbation
-Continue Breo Ellipta
Other PMH:
Gout
Osteoarthritis
[place]
DVT prophylaxis
SCDs, hold Eliquis
Full code
Total time spent on today's encounter was 50 minutes which included time spent in counseling the patient/family regarding diagnosis and treatment plan as listed above, goals of care, and symptom management. Case was discussed with nursing staff,
specialists, and care coordinators/case management. All labs and imaging personally reviewed by me. Remainder the time spent in detailed review of previous records, lab data, imaging, and other medical provider documentation.
Anticipated Discharge: Within 24 hours
Subjective/Interval History
-
Date of Service: February 14, 2024
No evidence of acute GI bleed, suboptimal response with1 unit
Objective Data
-
Labs:
Laboratory Results
02/14/24
05:14
WBC 6.4
Hgb 7.5 L
Hct 24.2 L
Plt Count 176
Sodium 137
Potassium 4.1
Chloride 109 H
Carbon Dioxide 22
BUN 32 H
Creatinine 1.5 H
Glucose 97
Calcium 8.7
Total Bilirubin 1.7 H D
AST 36
ALT 24
Alkaline Phosphatase 65
Vital Signs:
Vital Signs
Temp Pulse Resp BP Pulse Ox
98.7 F 61 16 126/75 95
02/14/24 07:30 02/14/24 07:30 02/14/24 07:30 02/14/24 07:30 02/14/24 07:30
I&O
02/13/24 02/14/24 02/15/24
06:59 06:59 06:59
Intake Total 1050 / 1050
Output Total 500 / 500
Balance 550 / 550
Review of Systems
-
History Source: Patient
All other systems: Not reviewed unless documented
Physical Exam
-
General: Well Developed and No Apparent Distress
HEENT: Normocephalic, Atraumatic and Moist Mucous Membranes
Respiratory: Clear to Auscultation
Cardiac: Regular Rhythm, S1/S2 and Murmur; Negative Rub or Gallop
GI: Soft, Nontender, Nondistended and Normal Bowel Sounds; Negative Organomegaly
Musculoskeletal: No Clubbing, No Cyanosis and No Edema
Skin: Negative Rash
Neuro: Nonfocal/Grossly Intact
Psych: Calm
Data Reviewed
-
Labs: Labs Reviewed by me and Discussed with Patient
[2024-02-14 11:11] LABS: LDH 280 U/L (120-246)
--- NOTE | 2024-02-14 12:12 | CON.CAR ---
Addendum entered and electronically signed by Kwaku Vanegas MD 02/14/24 13:47:
I saw and examined the patient.
The [employer]SE[employer] OIL TEMPERER's note was reviewed and I agree with the note.
Comment: 74M with anemia/GIB in setting of ASA/apixaban.
- There is no cardiac contraindication to EGD/colonoscopy
- hold apixaban. D/w pt and daughter small risk of stroke off apixaban, which is outweighed by continued risk of bleeding
- Ideally, we would continue ASA since his LM stent supplies his LAD (which has patent [id number]) and LCx (unprotected) -> reached out to team and they agree ASA OK.
Original Note:
Consultation
Consultation Request
Date/Time Consultation Requested: 02/14/24 10:15a
Date/Time Consultation Performed: 02/14/24 11:45a
Requesting Provider: Dr. Neri
Performing Provider: LILIBETH Majano for Dr. Vanegas
Reason for Consultation: pre-op risk assessment for EGD/colonoscopy
Medical History
-
Chief Complaint: acute anemia
History of Present Illness:
Mr. Smith is a 73-year-old male with paroxysmal atrial fibrillation on Eliquis (previously on Amiodarone, stopped 06/[address] Mccoy), CAD status post CABG 01/2019, NSTEMI 07/2022 with PCI of 90% left main/ostial circumflex lesion and distal
70% proximal circumflex lesion, cardiomyopathy EF 35 to 40% post NSTEMI, moderate to severe mitral regurgitation, chronic HFrEF, HLD and hypertension, who presents to the ER with abnormal outpatient labs 02/13/24, hgb of 7.2 with c/o fatigue. He is
admitted to the hospitalist service for acute anemia, heme positive stool. We are consulted by GI for pre-op risk assessment prior to EGD/colonoscopy as he is on Eliquis and ASA. These are currently held given his acute anemia. He received 1 unit
PRBCs. Currently he denies any cardiac complaints.
Past Medical History
Past Medical History: Other (as above)
Past Surgical History: Other (as above)
Social History
Tobacco: Non-Smoker
Alcohol: None
Personal:
Living: With Family
Employment: Retired
Family History
Family History: Reviewed & Not Pertinent
Allergies / Home Medications
Allergy/AdvReac Type Severity Reaction Status Date / Time
valsartan [From Diovan] Allergy Hives Verified 02/13/24 17:35
�Medication �Instructions �Recorded �Confirmed �Type
isosorbide mononitrate 30 mg 30 mg PO DAILY ANGINA 03/30/22 02/13/24 History
tablet,extended release 24 hr
montelukast 10 mg tablet 10 mg PO HSPRN PRN allergies 03/30/22 02/13/24 History
(Singulair)
apixaban 5 mg tablet (Eliquis) 5 mg PO BID Arrhythmia #0 tabs 08/22/22 02/13/24 Rx
fluticasone furoate 100 1 inh inhalation R DAILY 08/22/22 02/13/24 Rx
mcg-vilanterol 25 mcg/dose Lung/breathing issues #0 ea
inhalation powder (Breo Ellipta)
furosemide 40 mg tablet (Lasix) 40 mg PO DAILY Heart failure #30 08/23/22 02/13/24 Rx
tabs
pantoprazole 40 mg tablet,delayed 40 mg PO DAILY Gastrointestinal 08/23/22 02/13/24 Rx
release issue 30 days #30 tabs
Vitamin B Complex 50 1 tab PO Q48H@0800 Supplement 02/13/24 02/13/24 History
ascorbic acid (vitamin C) 1,000 mg 1,000 mg PO Q48H@0800 Supplement 02/13/24 02/13/24 History
tablet (Vitamin C)
aspirin 81 mg tablet,delayed 81 mg PO HS Blood Clot 02/13/24 02/13/24 History
release Prevention/Tx
atorvastatin 40 mg tablet 40 mg PO SUWE@2200 High cholesterol 02/13/24 02/13/24 History
cholecalciferol (vitamin D3) 50 50 mcg PO Q48H@0800 Supplement 02/13/24 02/13/24 History
mcg (2,000 unit) tablet
ezetimibe 10 mg tablet 10 mg PO DAILY High Cholesterol 02/13/24 02/13/24 History
furosemide 40 mg tablet 60 mg PO DAILY PRN if weight>191 02/13/24 02/13/24 History
lbs
metoprolol succinate 50 mg 50 mg PO HS Arrhythmia 02/13/24 02/13/24 History
tablet,extended release 24 hr
(Toprol XL)
spironolactone 25 mg tablet 25 mg PO DAILY Fluid 02/13/24 02/13/24 History
Retention/Swelling
therapeutic multivitamin 1 tab PO Q48H@0800 Supplement 02/13/24 02/13/24 History
triamcinolone acetonide 55 mcg 2 spray intranasal HSPRN PRN 02/13/24 02/13/24 History
nasal spray aerosol (Nasacort) allergies
vitamin A 15 mg PO Q48H@0800 Supplement 02/13/24 02/13/24 History
vitamin E (dl, acetate) 180 mg 180 mg PO Q48H@0800 Supplement 02/13/24 02/13/24 History
(400 unit) capsule
Review of Systems
-
History Source: Patient
All other systems: Negative unless noted
Physical Exam
Vital Signs
Temp Pulse Resp BP Pulse Ox
98.7 F 61 16 126/75 95
02/14/24 07:30 02/14/24 07:30 02/14/24 07:30 02/14/24 07:30 02/14/24 07:30
Lab Results
02/14/24 05:14
02/14/24 05:14
Physical Exam
General: Well Developed, Well Nourished and No Apparent Distress
HEENT: Normocephalic and Moist Mucous Membranes
Respiratory: Clear
Cardiac: S1/S2 and Regular Rhythm
Breast: Deferred by me
GI: Soft, Non Tender and Normal Bowel Sounds
Rectal: Deferred by Provider
Genito-urinary: No Costovertebral Tender
Musculoskeletal: No Clubbing, No Cyanosis and No Edema
Skin: Warm and Dry
Neuro: AO x 3
Hematologic/Lymphatic: No Lymphadenopathy
Psych: Calm
Impression / Plan
-
Acute anemia - hgb 7.2 on 02/13/24.
- received 1 unit PRBCs and now hgb 7.5.
- holding Eliquis and ASA now (last dose was 02/13/24 morning).
- GI consulted and plans for outpatient EGD/colonoscopy Saturday02/18/24, requesting hold ASA and Eliquis now until then.
HFrEF/ICM - chronic, stable.
- continue GDMT.
- echo 01/21/23: EF 45-50%, mild inferior and anteroseptal hypokinesis, severe left atrial enlargement, moderate MR, mild to moderate , mild to moderate AI, PASP 45mmHg.
- compared with previous study 08/20/2022 there is overall improvement; EF was 35 to 40%, MR was moderate to severe, and PA pressure was 57 mmHg.
CAD - s/p CABG 2018.
- s/p NSTEMI with PCI of 90% LM and 70% prox circumflex lesions 07/2022.
- has been on ASA and Eliquis, will hold due to acute anemia as above.
Afib - paroxysmal.
- denies any palpitations or recurrence of A-fib.
- on Eliquis 5 mg twice daily, now with heme + stool and acute anemia. Eliquis on hold.
ATUL - acute.
- creat 1.8 on admit, now 1.5 today.
Data Reviewed
-
Medical Tests (Nuc Med, Echo etc): Report Reviewed by me (echo 01/21/23: EF 45-50%, mild inferior and anteroseptal hypokinesis, severe left atrial enlargement, moderate MR, mild to moderate , mild to moderate AI, PASP 45mmHg. )
Labs: Labs Reviewed by me
Old Records: Reviewed
[2024-02-14] MEDS: FERRLECIT 110 MG IV (14:31)
[2024-02-14 14:47] LABS: Hematocrit 27.4 % (39.0-52.0); Hemoglobin 8.6 g/dL (13.0-18.0)
--- NOTE | 2024-02-14 14:49 | CM ---
Alert awake oriented patient who lives with his Jil who lives in a 1 story home with 4 step to enter and bed and bathroom on first floor. He is independent in driving and in all activities of daily living.No adaptive devices.He was offered
VN he declined need.
[facility] hx / No SNF history
Pharmacy [facility]
PCP DR Sandhya Wheatley
PLAN Home Declined VN
[2024-02-14] MEDS: ALDACTONE 25 MG PO (17:39)
[2024-02-14] MEDS: LASIX 40 MG PO (17:39)
[2024-02-14] MEDS: TOPROL XL 50 MG PO (21:20)
[2024-02-14] MEDS: ASPIR LOW (ENTERIC COATED) 81 MG PO (21:21)
[2024-02-15 03:00] VITALS: BP 132/74
[2024-02-15 06:00] VITALS: BMI 25.6
[2024-02-15 07:35] VITALS: BP 121/72
[2024-02-15 07:47] LABS: % Basophils 0.5 % (0-2); % Eosinophils 8.8 % (0-6); % Immature Granulocytes 0.3 % (0-0.5); % Neutrophils 44.4 % (42.2-75.2); Absolute Eosinophils 0.5 10^3/uL (0-0.7); Absolute Lymphocytes 1.6 10^3/uL (1.2-3.4); Absolute Monocytes 1.1 10^3/uL (0.1-0.6); Absolute Neutrophils 2.6 10^3/uL (1.4-6.5); Hematocrit 26.2 % (39.0-52.0); Hemoglobin 8.3 g/dL (13.0-18.0); Mean Corp Hgb Conc. 31.7 g/dL (33.0-37.0); Mean Corpuscular Hgb 25.2 pg (27.0-31.0); Mean Corpuscular Volume 79.4 fL (80.0-94.0); Mean Platelet Volume 10.1 fL (7.4-10.4); Nucleated Red Blood Cells % 0 % (-); Platelet Count 201 10^3/uL (130-400); Red Cell Dist. Width 18.4 % (11.5-14.5); White Blood Cell Count 5.8 10^3/uL (4.8-10.8)
--- NOTE | 2024-02-15 08:26 | W.PN.CD ---
Addendum entered and electronically signed by Marcus Driscoll MD 02/15/24 11:35:
I saw and examined the patient.
The SHELLF[employer] PROCESSING LABORER's note was reviewed and I agree with the note.
Comment: OK for home and return for outpatient GI w/u. To stay off Eliquis for now. Once GI w/u complete his mending carrier and GI doc can better determine next steps for chronic antiplatelet/anticoagulant strategy. We will sign off. Call with
questions.
Original Note:
Today's Communication / Plan
-
OK for outpatient EGD/colonoscopy, continue ASA 81mg daily, hold Eliquis.
Impression / Plan
-
Acute anemia - hgb 7.2 on 02/13/24.
- received 1 unit PRBCs and now hgb 8.3 today.
- holding Eliquis (last dose was 02/13/24 morning).
- continuing ASA 81mg daily.
- GI consulted and plans for outpatient EGD/colonoscopy Saturday02/18/24, requesting hold ASA and Eliquis now until then.
HFrEF/ICM - chronic, stable.
- continue GDMT.
- echo 01/21/23: EF 45-50%, mild inferior and anteroseptal HK, severe left atrial enlargement, mod MR, mild/mod , mild/mod AI, PASP 45mmHg.
- compared with previous study 08/20/22, overall improvement; EF was 35-40%, MR was mod/severe, and PA pressure was 57 mmHg.
CAD - s/p CABG 2018.
- s/p NSTEMI with PCI of 90% LM and 70% prox circumflex lesions 07/2022.
- hold Eliquis, reviewed with patient/family small risk of stroke off Eliquis, which is outweighed by continued risk of bleeding.
- will continue ASA since his LM stent supplies his LAD (which has patent [id number]) and LCx (unprotected), GI agrees.
Afib - paroxysmal.
- denies any palpitations or recurrence of A-fib.
- on Eliquis 5 mg twice daily, now with heme + stool and acute anemia. Eliquis on hold.
ATUL - acute, creat 1.8 on admit.
- improved 1.5 yesterday, pending today.
Physical Exam
Vital Signs/Labs
Vital Signs
Temp Pulse Resp BP Pulse Ox
97.3 F 56 18 132/74 96
02/15/24 03:00 02/15/24 03:00 02/15/24 03:00 02/15/24 03:00 02/15/24 03:00
02/14/24 02/15/24 02/16/24
06:59 06:59 06:59
Actual Weight 88.507 kg 85.417 kg
02/15/24 06:57
Physical Exam
Constitutional: No acute distress
EENT: Anicteric and Moist mucous membranes
Cardiovascular: Rhythm & rate is regular
Respiratory: Respiratory effort normal and Lungs clear to auscul.
GI: Soft, Non tender and Normal bowel sounds
Neuro/Psych: AO x 3
Other: Skin (warm, dry)
Data Reviewed
-
Date of Service: February 15, 2024
Medical Decision Making: Reviewed Test Results
EKG: Tracing Personally Visualized and interpreted
Labs: Labs Reviewed by me
Old Records: Reviewed
[2024-02-15 08:36] LABS: ALT (SGPT) 28 U/L (0-50); AST (SGOT) 40 U/L (17-59); Albumin 3.4 g/dl (3.5-5.0); Alkaline Phosphatase 73 U/L (38-126); Blood Urea Nitrogen 26 mg/dl (9-20); Calcium 9.2 mg/dl (8.4-10.2); Carbon Dioxide 27 mmol/L (22-30); Chloride 103 mmol/L (98-107); Estimated Creatinine Clearance 56 ml/min; Glucose 83 mg/dl (70-99); Potassium 3.9 mmol/L (3.5-5.1); Sodium 137 mmol/L (135-145); eGFR 58.01
[2024-02-15] MEDS: ZETIA 10 MG PO (09:00)
[2024-02-15] MEDS: ALDACTONE 25 MG PO (09:01)
[2024-02-15] MEDS: LASIX 40 MG PO (09:01)
[2024-02-15] MEDS: PROTONIX IV 40 MG IV (09:01)
[2024-02-15] MEDS: NSS (PRESERVATIVE FREE) 10 ML IV (09:02)
--- NOTE | 2024-02-15 10:58 | W.PN.HOSP.TC ---
Addendum entered and electronically signed by Lai Neri MD 02/16/24 15:42:
[id number]
Original Note:
Today's Communication/Plan
-
resume antihypertensives/GDMT as BP stabilized
F/u BMP assessing renal function in 7 days
CBC next week with GI
Hold Eliquis, Continue ASA 81mg
Plan for 02/17 EGD/C-Scope - instructions given by GI
Assessment / Plan
Assessment / Plan
Physical Exam
General: Comfortable and Conversant; No Pain, Fever or Chills
HEENT: NormoCephalic, Anicteric, PERRLA, No Ptosis
Respiratory: Clear; No Wheezes, Rales or Rhonchi
Cardiac: S1/S2, Regular Rhythm and Murmur (3/6 systolic murmur); No Rub, Gallop or Peripheral Edema
Breast: Deferred by me
GI: Soft, Non Distended, Normal Bowel Sounds and No Hepatosplenomegaly
Rectal: Deferred by Provider
Musculoskeletal: No Clubbing, No Cyanosis and No Edema
Skin: Warm, Dry; No Rash or Jaundice
Neuro: AO x 3, No Motor Deficits, Nonfocal/grossly intact, Cranial Nerves Intact and No Sensory Deficits; No Slurred Speech or Facial Droop
Psych: Calm
#Symptomatic anemia/GI bleed on Eliquis
#Iron Deficiency Anemia
Heme positive brown stool
-Transfuse 1 unit PRBC
-Follow CBC - repeat today
-IV Ferrlecit in a.m.
-Plan to hold Eliquis, plan for EGD/C-Scope next week
-ASA 81mg can be continued
-PPI twice daily until cleared by GI
-GI on board
#ATUL on CKD 3A
-possible -prerenal
-resolved s/p resuscitation
#Elevated Bili
-Elevated indirect
-possible gilberts, although f/u hapto/ldh
-F/u Outpatient
#A-fib paroxysmal
-Hold Eliquis due to acute anemia- Fam aware of risks;
-Continue amiodarone
-Continue Toprol XL with hold parameters
#Chronic CHF/ chronic Cardiomyopathy EF 44-55%
i/o , daily weight
BP stabilized
Resume home medications
2D echo 01/21/2023: EF 45-50%, mild reduced LVSF, mild inferior and anterior septal hypokinesis, severe left atrial enlargement. Moderate MR
#HTN-benign
resume Imdur, Lasix, spironolactone
#CABG x 3 vessel January 2020
#Cardiac stent circumflex 08/12/2022
-Resume ASA, hold eliquis - family acknowledges risks/benefits
-Continue atorvastatin 40 mg every afternoon
-resume Imdur
# HLD
-Continue statin
#Mitral regurg hx
#COPD-no acute exacerbation
-Continue Breo Ellipta
Other PMH:
Gout
Osteoarthritis
[place]
DVT prophylaxis
SCDs, hold Eliquis
Full code
More than 30 minutes spent in discharge including
Final examination of the patient
Summarizing hospital stay
Instructions for continuing care to all relevant caregivers
Preparation of discharge records, prescriptions, and referral forms
Total time spent (35 in minutes):
Anticipated Discharge: Today
Subjective/Interval History
-
Date of Service: February 15, 2024
no acute events, hgb stable
Objective Data
-
Labs:
Laboratory Results
02/15/24
06:57
WBC 5.8
Hgb 8.3 L
Hct 26.2 L
Plt Count 201
Sodium 137
Potassium 3.9
Chloride 103
Carbon Dioxide 27
BUN 26 H
Creatinine 1.3
Glucose 83
Calcium 9.2
Total Bilirubin 1.0
AST 40
ALT 28
Alkaline Phosphatase 73
Vital Signs:
Vital Signs
Temp Pulse Resp BP Pulse Ox
97.9 F 53 17 121/72 97
02/15/24 07:35 02/15/24 07:35 02/15/24 07:35 02/15/24 07:35 02/15/24 07:35
I&O
02/14/24 02/15/24 02/16/24
06:59 06:59 06:59
Intake Total 1050 / 1050 720 / 720 600 / 600
Output Total 500 / 500
Balance 550 / 550 720 / 720 600 / 600
Review of Systems
-
History Source: Patient
All other systems: Not reviewed unless documented
Data Reviewed
-
Labs: Labs Reviewed by me and Discussed with Patient
--- NOTE | 2024-02-15 11:04 | W.DS.TRANS ---
DC Summary - [facility]
-
Discharge Instructions:
Discharge Diagnosis/Procedures Acute anemia
#Symptomatic anemia/GI bleed on Eliquis
#ATUL on CKD 3A
Diet Low Fat,Low Cholesterol,2 Gram Sodium
Activity As tolerated
Blood Work CBC as per GI next week (week of 02/16); BMP with
PCP in 7 days
Instructions:
Stand-Alone Forms:
Changes to Home Medications: Yes
Discharge Medications:
DC Medications w/original date entered in [employer]
isosorbide mononitrate 30 mg tablet,extended release 24 hr 30 mg PO DAILY ANGINA 03/30/22
montelukast 10 mg tablet (Singulair) 10 mg PO HSPRN PRN allergies 03/30/22
apixaban 5 mg tablet (Eliquis) 5 mg PO BID Arrhythmia #0 tabs 08/22/22
fluticasone furoate 100 mcg-vilanterol 25 mcg/dose inhalation powder (Breo Ellipta) 1 inh inhalation R DAILY Lung/breathing issues #0 ea 08/22/22
furosemide 40 mg tablet (Lasix) 40 mg PO DAILY Heart failure #30 tabs 08/23/22
pantoprazole 40 mg tablet,delayed release 40 mg PO DAILY Gastrointestinal issue 30 days #30 tabs 08/23/22
Vitamin B Complex 50 1 tab PO Q48H@0800 Supplement 02/13/24
ascorbic acid (vitamin C) 1,000 mg tablet (Vitamin C) 1,000 mg PO Q48H@0800 Supplement 02/13/24
aspirin 81 mg tablet,delayed release 81 mg PO HS Blood Clot Prevention/Tx 02/13/24
atorvastatin 40 mg tablet 40 mg PO SUWE@2200 High cholesterol 02/13/24
cholecalciferol (vitamin D3) 50 mcg (2,000 unit) tablet 50 mcg PO Q48H@0800 Supplement 02/13/24
ezetimibe 10 mg tablet 10 mg PO DAILY High Cholesterol 02/13/24
furosemide 40 mg tablet 60 mg PO DAILY PRN if weight>191 lbs 02/13/24
metoprolol succinate 50 mg tablet,extended release 24 hr (Toprol XL) 50 mg PO HS Arrhythmia 02/13/24
spironolactone 25 mg tablet 25 mg PO DAILY Fluid Retention/Swelling 02/13/24
therapeutic multivitamin 1 tab PO Q48H@0800 Supplement 02/13/24
triamcinolone acetonide 55 mcg nasal spray aerosol (Nasacort) 2 spray intranasal HSPRN PRN allergies 02/13/24
vitamin A 15 mg PO Q48H@0800 Supplement 02/13/24
vitamin E (dl, acetate) 180 mg (400 unit) capsule 180 mg PO Q48H@0800 Supplement 02/13/24
pantoprazole 40 mg tablet,delayed release 40 mg PO BID 30 days #60 tabs 02/15/24
Home Medication Changes
pantoprazole 40 mg tablet,delayed release 40 mg PO BID 30 days #60 tabs 02/15/24
Pending Results: No
[2024-02-15 11:13] VITALS: BP 126/83
--- NOTE | 2024-02-15 11:44 | CM ---
Patient left the hospital before family independence case manager was able to see him
Chart reviewed: discharge to home; no needs
[2024-02-15 22:13] LABS: Haptoglobin 165 mg/dL (30-200)
== END 2024-02-15 11:32 | disposition home or self-care (01) | DRG 813 ==
LOC: 3 WEST ACU 22:13
PROVIDERS: Clinical Nurse Specialist Family Health; Physician Assistant; ADMITTING PHYSICIAN Hospitalist; ATTENDING PHYSICIAN Internal Medicine; CONSULT PHYSICIAN Internal Medicine Cardiovascular Disease; EMERGENCY PHYSICIAN Emergency Medicine; FAMILY PHYSICIAN Internal Medicine; OTHER PHYSICIAN Internal Medicine Gastroenterology
PROC: 30233N1 Transfusion of Nonautologous Red Blood Cells into Peripheral Vein, Percutaneous Approach (ICD-10-PCS; 2024-02-13)
DX: D68.32 Hemorrhagic disorder due to extrinsic circulating anticoagulants (principal); K92.2 Gastrointestinal hemorrhage, unspecified; I13.0 Hypertensive heart and chronic kidney disease with heart failure and stage 1 through stage 4 chronic kidney disease, or unspecified chronic kidney disease; I50.22 Chronic systolic (congestive) heart failure; N17.9 Acute kidney failure, unspecified; I42.9 Cardiomyopathy, unspecified; D50.9 Iron deficiency anemia, unspecified; N18.31 Chronic kidney disease, stage 3a; J44.9 Chronic obstructive pulmonary disease, unspecified; I25.119 Atherosclerotic heart disease of native coronary artery with unspecified angina pectoris; E78.00 Pure hypercholesterolemia, unspecified; I48.0 Paroxysmal atrial fibrillation; M10.9 Gout, unspecified; M19.90 Unspecified osteoarthritis, unspecified site; H91.90 Unspecified hearing loss, unspecified ear; I34.0 Nonrheumatic mitral (valve) insufficiency; I95.9 Hypotension, unspecified; Z95.5 Presence of coronary angioplasty implant and graft; Z79.01 Long term (current) use of anticoagulants; Z79.02 Long term (current) use of antithrombotics/antiplatelets; Z79.51 Long term (current) use of inhaled steroids; Z79.82 Long term (current) use of aspirin; Z95.1 Presence of aortocoronary bypass graft; I25.2 Old myocardial infarction; Z80.3 Family history of malignant neoplasm of breast; Z82.3 Family history of stroke; Z88.8 Allergy status to other drugs, medicaments and biological substances
CPT/HCPCS: 36430; 80053; 82248; 82607; 82728; 82746; 83010; 83540; 83550; 83615; 85014; 85018; 85025; 85384; 86850; 86900; 86901; 86920; 93005; 96374; 97162; 97166; 99285; J2916; P9016

== ENCOUNTER → 2024-02-18 12:51 | Day surgery (SDC) | payer OTHER, SELFPAY | LOC: GI 12:51 | PROVIDERS: ATTENDING PHYSICIAN Internal Medicine Gastroenterology; FAMILY PHYSICIAN Internal Medicine | DX: D50.9 Iron deficiency anemia, unspecified (principal); K57.30 Diverticulosis of large intestine without perforation or abscess without bleeding; K64.8 Other hemorrhoids; R19.5 Other fecal abnormalities; K22.89 Other specified disease of esophagus; K44.9 Diaphragmatic hernia without obstruction or gangrene; D12.3 Benign neoplasm of transverse colon; D12.0 Benign neoplasm of cecum; D12.5 Benign neoplasm of sigmoid colon; D12.8 Benign neoplasm of rectum | CPT/HCPCS: 45385; 45380; 43239; 88305 ==

== ENCOUNTER → 2024-03-09 15:34 | Outpatient (REF) | payer OTHER, SELFPAY ==
[2024-03-09 10:56] LABS: % Basophils 0.5 % (0-2); % Eosinophils 8.3 % (0-6); % Immature Granulocytes 0.8 % (0-0.5); % Lymphocytes 28.7 % (20.5-51.1); % Monocytes 17.8 % (1.7-9.3); % Neutrophils 43.9 % (42.2-75.2); Absolute Eosinophils 0.6 10^3/uL (0-0.7); Absolute Immature Granulocytes 0.1 10^3/uL (0-0.05); Absolute Lymphocytes 1.9 10^3/uL (1.2-3.4); Absolute Monocytes 1.2 10^3/uL (0.1-0.6); Absolute Neutrophils 2.9 10^3/uL (1.4-6.5); Hematocrit 29.7 % (39.0-52.0); Hemoglobin 9.3 g/dL (13.0-18.0); Mean Corp Hgb Conc. 31.3 g/dL (33.0-37.0); Mean Corpuscular Volume 86.3 fL (80.0-94.0); Mean Platelet Volume 10.1 fL (7.4-10.4); Nucleated Red Blood Cells % 0 % (-); Platelet Count 203 10^3/uL (130-400); Red Blood Cell Count 3.44 10^6/uL (4.70-6.10); Red Cell Dist. Width 23.6 % (11.5-14.5); White Blood Cell Count 6.6 10^3/uL (4.8-10.8)
[2024-03-09 11:27] LABS: Vitamin D, 25-OH*** 53.7 ng/mL (30-80)
[2024-03-09 14:08] LABS: Anisocytosis 1+; Hypochromasia 1+; Normal RBC Morphology No; Ovalocytes Slight
== END ==
LOC: OIDL 15:34
PROVIDERS: ATTENDING PHYSICIAN Internal Medicine Hematology & Oncology
DX: D50.9 Iron deficiency anemia, unspecified (principal)
CPT/HCPCS: 82306; 85025

== ENCOUNTER → 2024-03-11 14:46 | Outpatient (REF) | payer OTHER, SELFPAY | LOC: HWRCS 14:46 | PROVIDERS: ATTENDING PHYSICIAN Internal Medicine Cardiovascular Disease; FAMILY PHYSICIAN Internal Medicine | DX: I50.20 Unspecified systolic (congestive) heart failure (principal); I25.118 Atherosclerotic heart disease of native coronary artery with other forms of angina pectoris; R53.83 Other fatigue | CPT/HCPCS: 93306 ==

== ENCOUNTER → 2024-03-16 15:34 | Outpatient (REF) | payer OTHER, SELFPAY ==
[2024-03-16 11:42] LABS: % Basophils 0.8 % (0-2); % Eosinophils 7.7 % (0-6); % Immature Granulocytes 0.9 % (0-0.5); % Monocytes 16.9 % (1.7-9.3); % Neutrophils 44.7 % (42.2-75.2); Absolute Basophils 0.1 10^3/uL (0-0.2); Absolute Eosinophils 0.5 10^3/uL (0-0.7); Absolute Immature Granulocytes 0.1 10^3/uL (0-0.05); Absolute Lymphocytes 1.9 10^3/uL (1.2-3.4); Absolute Monocytes 1.1 10^3/uL (0.1-0.6); Hemoglobin 9.4 g/dL (13.0-18.0); Mean Corp Hgb Conc. 31.3 g/dL (33.0-37.0); Mean Corpuscular Hgb 27.8 pg (27.0-31.0); Mean Corpuscular Volume 88.8 fL (80.0-94.0); Nucleated Red Blood Cells % 0 % (-); Platelet Count 187 10^3/uL (130-400); Red Blood Cell Count 3.38 10^6/uL (4.70-6.10); Red Cell Dist. Width 25.2 % (11.5-14.5); White Blood Cell Count 6.6 10^3/uL (4.8-10.8)
[2024-03-16 12:01] LABS: Phosphorus 3.8 mg/dl (2.5-4.5)
== END ==
LOC: OIDL 15:34
PROVIDERS: ATTENDING PHYSICIAN Internal Medicine Hematology & Oncology
DX: D50.9 Iron deficiency anemia, unspecified (principal)
CPT/HCPCS: 84100; 85025

== ENCOUNTER → 2024-04-09 14:09 | Outpatient (REF) | payer OTHER, SELFPAY ==
[2024-04-09 14:59] LABS: % Basophils 0.6 % (0-2); % Eosinophils 6.7 % (0-6); % Immature Granulocytes 0.4 % (0-0.5); % Monocytes 16.1 % (1.7-9.3); % Neutrophils 51.2 % (42.2-75.2); Absolute Eosinophils 0.5 10^3/uL (0-0.7); Absolute Lymphocytes 1.7 10^3/uL (1.2-3.4); Absolute Monocytes 1.1 10^3/uL (0.1-0.6); Absolute Neutrophils 3.5 10^3/uL (1.4-6.5); Hematocrit 35.2 % (39.0-52.0); Hemoglobin 11.8 g/dL (13.0-18.0); Mean Corp Hgb Conc. 33.5 g/dL (33.0-37.0); Mean Corpuscular Volume 95.4 fL (80.0-94.0); Mean Platelet Volume 10.4 fL (7.4-10.4); Nucleated Red Blood Cells % 0 % (-); Platelet Count 168 10^3/uL (130-400); Red Blood Cell Count 3.69 10^6/uL (4.70-6.10); Red Cell Dist. Width 26.5 % (11.5-14.5); White Blood Cell Count 6.8 10^3/uL (4.8-10.8)
[2024-04-09 15:35] LABS: ALT (SGPT) 37 U/L (0-50); AST (SGOT) 51 U/L (17-59); Albumin 4.1 g/dl (3.5-5.0); Alkaline Phosphatase 91 U/L (38-126); Blood Urea Nitrogen 28 mg/dl (9-20); Calcium 9.5 mg/dl (8.4-10.2); Carbon Dioxide 24 mmol/L (22-30); Chloride 104 mmol/L (98-107); Glucose 102 mg/dl (70-99); HDL Cholesterol 84 mg/dl; LDL Cholesterol, Calculated 61 mg/dl; Potassium 4.9 mmol/L (3.5-5.1); Sodium 137 mmol/L (135-145); Total Bilirubin 0.8 mg/dl (0.2-1.3); Total Cholesterol 161 mg/dl (50-199); Total Protein 6.6 g/dl (6.3-8.2); Triglyceride 83 mg/dl (10-149); Very Low Density Lipoprotein 16 mg/dl (0-30); eGFR > 60.00
[2024-04-09 16:02] LABS: PSA, Total - Screen 0.56 ng/ml (0.0-4.0); TSH 0.89 uIU/ml (0.47-4.68)
[2024-04-09 17:05] LABS: Iron 134 ug/dl (49-181)
[2024-04-09 17:15] LABS: Percent Saturation 36 % (20-50); Total Iron Binding Capacity 366 ug/dl (261-462)
== END ==
LOC: REG 14:09
PROVIDERS: ATTENDING PHYSICIAN Internal Medicine Hematology & Oncology; FAMILY PHYSICIAN Internal Medicine
DX: D50.9 Iron deficiency anemia, unspecified (principal); I10 Essential (primary) hypertension; Z12.5 Encounter for screening for malignant neoplasm of prostate
CPT/HCPCS: 36415; 80053; 80061; 82728; 83540; 83550; 84443; 85025; G0103

== ENCOUNTER → 2024-05-11 13:09 | Outpatient (REF) | payer OTHER, SELFPAY ==
[2024-05-11 14:29] LABS: % Basophils 0.4 % (0-2); % Eosinophils 6.4 % (0-6); % Immature Granulocytes 0.6 % (0-0.5); % Monocytes 14.7 % (1.7-9.3); % Neutrophils 49.9 % (42.2-75.2); Absolute Eosinophils 0.4 10^3/uL (0-0.7); Absolute Lymphocytes 1.9 10^3/uL (1.2-3.4); Absolute Neutrophils 3.4 10^3/uL (1.4-6.5); Hematocrit 34.6 % (39.0-52.0); Hemoglobin 11.8 g/dL (13.0-18.0); Mean Corp Hgb Conc. 34.1 g/dL (33.0-37.0); Mean Corpuscular Hgb 35.2 pg (27.0-31.0); Mean Corpuscular Volume 103.3 fL (80.0-94.0); Mean Platelet Volume 10.9 fL (7.4-10.4); Nucleated Red Blood Cells % 0 % (-); Platelet Count 185 10^3/uL (130-400); Red Blood Cell Count 3.35 10^6/uL (4.70-6.10); Red Cell Dist. Width 21.2 % (11.5-14.5); White Blood Cell Count 6.9 10^3/uL (4.8-10.8)
[2024-05-11 14:55] LABS: Iron 110 ug/dl (49-181)
[2024-05-11 15:32] LABS: Ferritin 96.5 ng/ml (17.9-464.0)
== END ==
LOC: REG 13:09
PROVIDERS: ATTENDING PHYSICIAN Internal Medicine Hematology & Oncology; FAMILY PHYSICIAN Internal Medicine
DX: D50.9 Iron deficiency anemia, unspecified (principal)
CPT/HCPCS: 36415; 82728; 83540; 85025

== ENCOUNTER → 2024-06-08 12:24 | Outpatient (REF) | payer OTHER, SELFPAY ==
[2024-06-08 14:15] LABS: % Basophils 0.4 % (0-2); % Eosinophils 6.8 % (0-6); % Immature Granulocytes 0.8 % (0-0.5); % Lymphocytes 23.4 % (20.5-51.1); % Monocytes 15.6 % (1.7-9.3); Absolute Eosinophils 0.5 10^3/uL (0-0.7); Absolute Immature Granulocytes 0.1 10^3/uL (0-0.05); Absolute Lymphocytes 1.8 10^3/uL (1.2-3.4); Absolute Monocytes 1.2 10^3/uL (0.1-0.6); Absolute Neutrophils 4.1 10^3/uL (1.4-6.5); Hematocrit 35.2 % (39.0-52.0); Hemoglobin 11.7 g/dL (13.0-18.0); Mean Corp Hgb Conc. 33.2 g/dL (33.0-37.0); Mean Corpuscular Hgb 34.7 pg (27.0-31.0); Mean Corpuscular Volume 104.5 fL (80.0-94.0); Mean Platelet Volume 10.5 fL (7.4-10.4); Nucleated Red Blood Cells % 0 % (-); Platelet Count 186 10^3/uL (130-400); Red Blood Cell Count 3.37 10^6/uL (4.70-6.10); Red Cell Dist. Width 15.2 % (11.5-14.5); White Blood Cell Count 7.8 10^3/uL (4.8-10.8)
[2024-06-08 14:56] LABS: Iron 45 ug/dl (49-181)
[2024-06-08 15:38] LABS: Ferritin 89.6 ng/ml (17.9-464.0)
== END ==
LOC: REG 12:24
PROVIDERS: ATTENDING PHYSICIAN Internal Medicine Hematology & Oncology; FAMILY PHYSICIAN Internal Medicine
DX: D50.9 Iron deficiency anemia, unspecified (principal)
CPT/HCPCS: 36415; 82728; 83540; 85025

== ENCOUNTER → 2024-06-29 13:26 | Outpatient (REF) | payer OTHER, SELFPAY ==
[2024-06-29 14:45] LABS: % Basophils 0.4 % (0-2); % Eosinophils 5.6 % (0-6); % Immature Granulocytes 0.6 % (0-0.5); % Lymphocytes 23.4 % (20.5-51.1); Absolute Eosinophils 0.4 10^3/uL (0-0.7); Absolute Lymphocytes 1.6 10^3/uL (1.2-3.4); Absolute Neutrophils 3.7 10^3/uL (1.4-6.5); Hematocrit 34.6 % (39.0-52.0); Hemoglobin 11.6 g/dL (13.0-18.0); Mean Corp Hgb Conc. 33.5 g/dL (33.0-37.0); Mean Corpuscular Hgb 35.8 pg (27.0-31.0); Mean Corpuscular Volume 106.8 fL (80.0-94.0); Mean Platelet Volume 11.1 fL (7.4-10.4); Nucleated Red Blood Cells % 0 % (-); Platelet Count 171 10^3/uL (130-400); Red Blood Cell Count 3.24 10^6/uL (4.70-6.10); Red Cell Dist. Width 13.6 % (11.5-14.5); White Blood Cell Count 6.8 10^3/uL (4.8-10.8)
[2024-06-29 15:22] LABS: Iron 113 ug/dl (49-181)
[2024-06-29 15:55] LABS: Ferritin 75.1 ng/ml (17.9-464.0)
== END ==
LOC: REG 13:26
PROVIDERS: ATTENDING PHYSICIAN Internal Medicine Hematology & Oncology; FAMILY PHYSICIAN Internal Medicine
DX: D50.9 Iron deficiency anemia, unspecified (principal)
CPT/HCPCS: 36415; 82728; 83540; 85025

== ENCOUNTER → 2024-08-03 12:31 | Outpatient (REF) | payer OTHER, SELFPAY ==
[2024-08-03 13:21] LABS: % Basophils 0.4 % (0-2); % Eosinophils 6.5 % (0-6); % Immature Granulocytes 0.7 % (0-0.5); % Lymphocytes 21.3 % (20.5-51.1); % Monocytes 13.2 % (1.7-9.3); % Neutrophils 57.9 % (42.2-75.2); Absolute Eosinophils 0.5 10^3/uL (0-0.7); Absolute Immature Granulocytes 0.1 10^3/uL (0-0.05); Absolute Lymphocytes 1.6 10^3/uL (1.2-3.4); Absolute Neutrophils 4.3 10^3/uL (1.4-6.5); Hematocrit 35.5 % (39.0-52.0); Mean Corp Hgb Conc. 33.8 g/dL (33.0-37.0); Mean Corpuscular Hgb 36.9 pg (27.0-31.0); Mean Corpuscular Volume 109.2 fL (80.0-94.0); Mean Platelet Volume 10.7 fL (7.4-10.4); Nucleated Red Blood Cells % 0 % (-); Platelet Count 186 10^3/uL (130-400); Red Blood Cell Count 3.25 10^6/uL (4.70-6.10); Red Cell Dist. Width 12.6 % (11.5-14.5); White Blood Cell Count 7.4 10^3/uL (4.8-10.8)
[2024-08-03 13:50] LABS: Iron 129 ug/dl (49-181)
[2024-08-03 14:27] LABS: Ferritin 52.9 ng/ml (17.9-464.0)
== END ==
LOC: REG 12:31
PROVIDERS: ATTENDING PHYSICIAN Internal Medicine Hematology & Oncology; FAMILY PHYSICIAN Internal Medicine
DX: D50.9 Iron deficiency anemia, unspecified (principal)
CPT/HCPCS: 36415; 82728; 83540; 85025

== ENCOUNTER → 2024-08-26 14:12 | Outpatient (REF) | payer OTHER, SELFPAY ==
[2024-08-26 15:03] LABS: Reticulocyte Count 2.9 % (0.4-2.8)
[2024-08-26 15:20] LABS: Erythrocyte Sed Rate 25 mm/hour (0-20)
[2024-08-26 15:23] LABS: Iron 143 ug/dl (49-181)
[2024-08-26 15:38] LABS: Percent Saturation 37 % (20-50); Total Iron Binding Capacity 386 ug/dl (261-462)
[2024-08-26 15:57] LABS: TSH 1.77 uIU/ml (0.47-4.68)
[2024-08-26 16:34] LABS: Folate > 20.0 ng/ml (2.76-20); Vitamin B12 682 pg/ml (239-931)
== END ==
LOC: REG 14:12
PROVIDERS: ATTENDING PHYSICIAN Internal Medicine Hematology & Oncology; FAMILY PHYSICIAN Internal Medicine
DX: D50.9 Iron deficiency anemia, unspecified (principal)
CPT/HCPCS: 36415; 82607; 82746; 83540; 83550; 84443; 85045; 85652

== ENCOUNTER → 2024-09-07 16:18 | Outpatient (REF) | payer OTHER, SELFPAY ==
[2024-09-07 15:44] LABS: % Basophils 0.4 % (0-2); % Eosinophils 5.4 % (0-6); % Immature Granulocytes 0.6 % (0-0.5); % Lymphocytes 23.7 % (20.5-51.1); % Monocytes 17.4 % (1.7-9.3); % Neutrophils 52.5 % (42.2-75.2); Absolute Eosinophils 0.4 10^3/uL (0-0.7); Absolute Lymphocytes 1.6 10^3/uL (1.2-3.4); Absolute Monocytes 1.2 10^3/uL (0.1-0.6); Absolute Neutrophils 3.6 10^3/uL (1.4-6.5); Hematocrit 35.1 % (39.0-52.0); Hemoglobin 11.6 g/dL (13.0-18.0); Mean Corpuscular Hgb 36.9 pg (27.0-31.0); Mean Corpuscular Volume 111.8 fL (80.0-94.0); Mean Platelet Volume 10.9 fL (7.4-10.4); Nucleated Red Blood Cells % 0 % (-); Platelet Count 154 10^3/uL (130-400); Red Blood Cell Count 3.14 10^6/uL (4.70-6.10); Red Cell Dist. Width 12.4 % (11.5-14.5); White Blood Cell Count 6.9 10^3/uL (4.8-10.8)
[2024-09-07 15:57] LABS: Phosphorus 4.3 mg/dl (2.5-4.5)
== END ==
LOC: OIDL 16:18
PROVIDERS: ATTENDING PHYSICIAN Internal Medicine Hematology & Oncology
DX: D50.9 Iron deficiency anemia, unspecified (principal)
CPT/HCPCS: 84100; 85025

== ENCOUNTER → 2024-10-15 13:43 | Outpatient (REF) | payer BC, SELFPAY ==
[2024-10-15 14:28] LABS: % Basophils 0.9 % (0-2); % Eosinophils 7.9 % (0-6); % Immature Granulocytes 0.6 % (0-0.5); % Lymphocytes 24.5 % (20.5-51.1); % Monocytes 14.7 % (1.7-9.3); % Neutrophils 51.4 % (42.2-75.2); Absolute Basophils 0.1 10^3/uL (0-0.2); Absolute Eosinophils 0.5 10^3/uL (0-0.7); Absolute Lymphocytes 1.7 10^3/uL (1.2-3.4); Absolute Neutrophils 3.5 10^3/uL (1.4-6.5); Hematocrit 38.7 % (39.0-52.0); Hemoglobin 13.1 g/dL (13.0-18.0); Mean Corp Hgb Conc. 33.9 g/dL (33.0-37.0); Mean Corpuscular Hgb 36.4 pg (27.0-31.0); Mean Corpuscular Volume 107.5 fL (80.0-94.0); Mean Platelet Volume 10.8 fL (7.4-10.4); Nucleated Red Blood Cells % 0 % (-); Platelet Count 163 10^3/uL (130-400); Red Cell Dist. Width 12.6 % (11.5-14.5); White Blood Cell Count 6.7 10^3/uL (4.8-10.8)
[2024-10-15 15:10] LABS: ALT (SGPT) 48 U/L (0-50); AST (SGOT) 52 U/L (17-59); Blood Urea Nitrogen 33 mg/dl (9-20); Calcium 9.4 mg/dl (8.4-10.2); Carbon Dioxide 24 mmol/L (22-30); Chloride 104 mmol/L (98-107); Glucose 99 mg/dl (70-99); HDL Cholesterol 92 mg/dl; Iron 128 ug/dl (49-181); LDL Cholesterol, Calculated 50 mg/dl; Phosphorus 4.1 mg/dl (2.5-4.5); Potassium 4.5 mmol/L (3.5-5.1); Sodium 137 mmol/L (135-145); Total Cholesterol 157 mg/dl (50-199); Triglyceride 75 mg/dl (10-149); Very Low Density Lipoprotein 15 mg/dl (0-30); eGFR > 60.00
[2024-10-15 15:20] LABS: Percent Saturation 40 % (20-50); Total Iron Binding Capacity 319 ug/dl (261-462)
== END ==
LOC: REG 13:43
PROVIDERS: ATTENDING PHYSICIAN Internal Medicine Hematology & Oncology; FAMILY PHYSICIAN Internal Medicine Cardiovascular Disease
DX: D50.9 Iron deficiency anemia, unspecified (principal); I50.20 Unspecified systolic (congestive) heart failure; I25.5 Ischemic cardiomyopathy; I25.118 Atherosclerotic heart disease of native coronary artery with other forms of angina pectoris; E78.00 Pure hypercholesterolemia, unspecified
CPT/HCPCS: 36415; 80061; 80069; 82728; 83540; 83550; 84450; 84460; 85025

== ENCOUNTER → 2024-12-10 13:30 | Outpatient (REF) | payer BC, SELFPAY ==
[2024-12-10 14:26] LABS: % Basophils 0.3 % (0-2); % Eosinophils 4.6 % (0-6); % Immature Granulocytes 0.8 % (0-0.5); % Lymphocytes 25.9 % (20.5-51.1); % Monocytes 15.5 % (1.7-9.3); % Neutrophils 52.9 % (42.2-75.2); Absolute Eosinophils 0.3 10^3/uL (0-0.7); Absolute Immature Granulocytes 0.1 10^3/uL (0-0.05); Absolute Lymphocytes 1.9 10^3/uL (1.2-3.4); Absolute Monocytes 1.1 10^3/uL (0.1-0.6); Absolute Neutrophils 3.9 10^3/uL (1.4-6.5); Hematocrit 39.9 % (39.0-52.0); Hemoglobin 13.2 g/dL (13.0-18.0); Mean Corp Hgb Conc. 33.1 g/dL (33.0-37.0); Mean Corpuscular Hgb 36.8 pg (27.0-31.0); Mean Corpuscular Volume 111.1 fL (80.0-94.0); Mean Platelet Volume 10.7 fL (7.4-10.4); Nucleated Red Blood Cells % 0 % (-); Platelet Count 149 10^3/uL (130-400); Red Blood Cell Count 3.59 10^6/uL (4.70-6.10); Red Cell Dist. Width 13.7 % (11.5-14.5); White Blood Cell Count 7.3 10^3/uL (4.8-10.8)
[2024-12-10 14:57] LABS: Iron 147 ug/dl (49-181)
[2024-12-10 15:07] LABS: Percent Saturation 47 % (20-50); Total Iron Binding Capacity 309 ug/dl (261-462)
== END ==
LOC: REG 13:30
PROVIDERS: ATTENDING PHYSICIAN Internal Medicine Hematology & Oncology; FAMILY PHYSICIAN Nurse Practitioner Adult Health
DX: D50.9 Iron deficiency anemia, unspecified (principal)
CPT/HCPCS: 36415; 82728; 83540; 83550; 85025

== ENCOUNTER → 2025-02-01 12:41 | Outpatient (REF) | payer BC, SELFPAY ==
[2025-02-01 14:11] LABS: % Basophils 0.4 % (0-2); % Eosinophils 4.4 % (0-6); % Immature Granulocytes 0.5 % (0-0.5); % Lymphocytes 17.1 % (20.5-51.1); % Monocytes 12.8 % (1.7-9.3); % Neutrophils 64.8 % (42.2-75.2); Absolute Eosinophils 0.3 10^3/uL (0-0.7); Absolute Lymphocytes 1.3 10^3/uL (1.2-3.4); Hematocrit 37.1 % (39.0-52.0); Hemoglobin 12.5 g/dL (13.0-18.0); Mean Corp Hgb Conc. 33.7 g/dL (33.0-37.0); Mean Corpuscular Hgb 36.9 pg (27.0-31.0); Mean Corpuscular Volume 109.4 fL (80.0-94.0); Nucleated Red Blood Cells % 0 % (-); Platelet Count 165 10^3/uL (130-400); Red Blood Cell Count 3.39 10^6/uL (4.70-6.10); Red Cell Dist. Width 12.9 % (11.5-14.5); White Blood Cell Count 7.7 10^3/uL (4.8-10.8)
[2025-02-01 15:49] LABS: Iron 71 ug/dl (49-181)
[2025-02-01 16:05] LABS: Percent Saturation 22 % (20-50); Total Iron Binding Capacity 314 ug/dl (261-462)
== END ==
LOC: REG 12:41
PROVIDERS: ATTENDING PHYSICIAN Internal Medicine Hematology & Oncology; FAMILY PHYSICIAN Nurse Practitioner Adult Health
DX: D50.9 Iron deficiency anemia, unspecified (principal)
CPT/HCPCS: 36415; 82728; 83540; 83550; 85025

== ENCOUNTER → 2025-04-16 11:55 | Outpatient (REF) | payer BC, SELFPAY ==
[2025-04-16 14:07] LABS: Uric Acid 8.0 mg/dl (3.5-8.5)
== END ==
LOC: REG 11:55
PROVIDERS: ATTENDING PHYSICIAN Podiatrist; FAMILY PHYSICIAN Nurse Practitioner Adult Health
DX: M10.9 Gout, unspecified (principal)
CPT/HCPCS: 36415; 84550

== ENCOUNTER → 2025-04-23 09:00 | Outpatient (REF) | payer BC, SELFPAY ==
[2025-04-23 10:10] LABS: Hematocrit 37.9 % (39.0-52.0); Hemoglobin 12.7 g/dL (13.0-18.0); Mean Corp Hgb Conc. 33.5 g/dL (33.0-37.0); Mean Corpuscular Volume 106.8 fL (80.0-94.0); Nucleated Red Blood Cells % 0 % (-); Platelet Count 183 10^3/uL (130-400); Red Cell Dist. Width 13.3 % (11.5-14.5)
[2025-04-23 10:43] LABS: Iron 75 ug/dl (49-181)
[2025-04-23 10:55] LABS: Total Iron Binding Capacity 335 ug/dl (261-462)
[2025-04-23 11:22] LABS: Ferritin 184.0 ng/ml (17.9-464.0)
== END ==
LOC: REG 09:00
PROVIDERS: ATTENDING PHYSICIAN Nurse Practitioner Primary Care; FAMILY PHYSICIAN Nurse Practitioner Adult Health
DX: D50.9 Iron deficiency anemia, unspecified (principal)
CPT/HCPCS: 36415; 82728; 83540; 83550; 85025

== ENCOUNTER → 2025-05-11 12:09 | Outpatient (REF) | payer BC, SELFPAY ==
[2025-05-11 13:36] LABS: ALT (SGPT) 27 U/L (0-50); AST (SGOT) 31 U/L (17-59); Albumin 3.7 g/dl (3.5-5.0); Alkaline Phosphatase 80 U/L (38-126); Blood Urea Nitrogen 33 mg/dl (9-20); Calcium 9.6 mg/dl (8.4-10.2); Carbon Dioxide 26 mmol/L (22-30); Chloride 106 mmol/L (98-107); Glucose 96 mg/dl (70-99); HDL Cholesterol 65 mg/dl; LDL Cholesterol, Calculated 61 mg/dl; Potassium 4.4 mmol/L (3.5-5.1); Sodium 137 mmol/L (135-145); Total Protein 6.2 g/dl (6.3-8.2); Uric Acid 8.7 mg/dl (3.5-8.5); Very Low Density Lipoprotein 14 mg/dl (0-30); eGFR > 60.00
[2025-05-11 14:07] LABS: PSA, Total - Screen 0.43 ng/ml (0.0-4.0)
== END ==
LOC: REG 12:09
PROVIDERS: ATTENDING PHYSICIAN Nurse Practitioner Adult Health
DX: Z00.00 Encounter for general adult medical examination without abnormal findings (principal); Z12.5 Encounter for screening for malignant neoplasm of prostate; E78.00 Pure hypercholesterolemia, unspecified; I25.118 Atherosclerotic heart disease of native coronary artery with other forms of angina pectoris; I48.0 Paroxysmal atrial fibrillation; M10.9 Gout, unspecified
CPT/HCPCS: 36415; 80053; 80061; 84550; G0103

== ENCOUNTER 2025-06-21 06:35 | Day surgery (SDC) | payer OTHER, SELFPAY ==
[2025-06-11 12:38] LABS: Hematocrit 36.2 % (39.0-52.0); Hemoglobin 12.2 g/dL (13.0-18.0); Mean Corp Hgb Conc. 33.7 g/dL (33.0-37.0); Mean Corpuscular Volume 105.2 fL (80.0-94.0); Platelet Count 151 10^3/uL (130-400); Red Cell Dist. Width 13.7 % (11.5-14.5)
[2025-06-11 15:16] LABS: Blood Urea Nitrogen 28 mg/dl (9-20); Calcium 9.5 mg/dl (8.4-10.2); Carbon Dioxide 26 mmol/L (22-30); Chloride 106 mmol/L (98-107); Glucose 96 mg/dl (70-99); Potassium 4.6 mmol/L (3.5-5.1); Sodium 137 mmol/L (135-145); eGFR > 60.00
[2025-06-11 16:26] VITALS: BMI 26.7
[2025-06-21] VITALS (9 sets, daily range): BP systolic 101–128; BP diastolic 71–94; BMI 26.7
[2025-06-21] MEDS: TYLENOL 1000 MG PO (08:07)
[2025-06-21] MEDS: NORMOSOL-R/PLASMALYTE-A 1000 IV (08:08)
--- NOTE | 2025-06-21 08:57 | HP.FOC2 ---
Focused History & Physical
Chief Complaint
HPI:
Chief Complaint: Bilateral inguinal hernias
HPI / Indication for Planned Procedure: Patient is a 75-year-old male with a past medical history notable for P A-fib on Eliquis, CAD s/p CABG, history of NSTEMI with PCI, prior history of cardiomyopathy with ejection fraction 35 to 40% but most
recent EF 45 to 50%, CHFrEF, hypertension, iron deficiency anemia, gout, mild intermittent asthma.
He has had a longstanding history of a left inguinal hernia that the patient has been following expectantly for many decades. There is a hernia present in the right inguinal region as well but much smaller. The left inguinal hernia has enlarged to
the point that it is significantly protuberant down in the left scrotal area. He has occasional discomfort and pain in the area. The hernia is always present and not fully reducible. No symptoms suggestive of intermittent obstruction or
strangulation. Physical examination confirmed the presence of a large left inguinoscrotal hernia, chronically incarcerated and reducible right inguinal hernia.
Relevant Past Medical History: Other (Hypertension, CAD, CHFrEF, chronic iron deficiency anemia, atrial fibrillation, restrictive airway disease)
Relevant Social History: Negative
Relevant Family History: Negative
Relevant Past Surgical History: Positive for (CABG, angioplasty, left/right total knee replacements, cataracts)
Review of Systems
Review of Pertinent Systems: All Systems Negative
Medication
See Medication form for detailed medications: Yes
Medication List (including Herbals & OTC):
isosorbide mononitrate 30 mg tablet,extended release 24 hr 30 mg PO DAILY ANGINA 03/30/22
montelukast 10 mg tablet (Singulair) 10 mg PO HSPRN PRN allergies 03/30/22
apixaban 5 mg tablet (Eliquis) 5 mg PO BID Arrhythmia #0 tabs 08/22/22
Held on 02/15/24. Instructions: Resume on 03/25/24. until cleared by GI
fluticasone furoate 100 mcg-vilanterol 25 mcg/dose inhalation powder (Breo Ellipta) 1 inh inhalation R DAILY Lung/breathing issues #0 ea 11/30/22
furosemide 40 mg tablet (Lasix) 40 mg PO DAILY Heart failure #30 tabs 08/23/22
pantoprazole 40 mg tablet,delayed release 40 mg PO DAILY Gastrointestinal issue 30 days #30 tabs 08/23/22
Vitamin B Complex 50 1 tab PO Q48H@0800 Supplement 02/13/24
ascorbic acid (vitamin C) 1,000 mg tablet (Vitamin C) 1,000 mg PO Q48H@0800 Supplement 02/13/24
atorvastatin 40 mg tablet 40 mg PO SUWE@2200 High cholesterol 02/13/24
cholecalciferol (vitamin D3) 50 mcg (2,000 unit) tablet 50 mcg PO Q48H@0800 Supplement 02/13/24
ezetimibe 10 mg tablet 10 mg PO DAILY High Cholesterol 02/13/24
metoprolol succinate 50 mg tablet,extended release 24 hr (Toprol XL) 50 mg PO HS Arrhythmia 02/13/24
spironolactone 25 mg tablet 25 mg PO DAILY Fluid Retention/Swelling 02/13/24
therapeutic multivitamin 1 tab PO Q48H@0800 Supplement 02/13/24
triamcinolone acetonide 55 mcg nasal spray aerosol (Nasacort) 2 spray intranasal HSPRN PRN allergies 02/13/24
vitamin A 15 mg PO Q48H@0800 Supplement 02/13/24
vitamin E (dl, acetate) 180 mg (400 unit) capsule 180 mg PO Q48H@0800 Supplement 02/13/24
aspirin 81 mg tablet 81 mg PO DAILY 06/21/25
Medications Reviewed: Yes
Allergies and Reactions
Patient has Allergies: Yes
Noted Allergies and Reactions:
Allergy/AdvReac Type Severity Reaction Status Date / Time
valsartan (From [facility] [employer]) Allergy Hives Verified 06/21/25 07:50
Pertinent Physical Exam
All Other Systems: Negative
Head/Neck: Normal
Lungs: Normal
Heart: Normal
Abdomen: Other (Reducible right inguinal hernia. Chronically incarcerated left inguinal hernia)
Extremities: Normal
Neurological: Normal
Diagnosis / Assessment
75-year-old male presenting for scheduled operative correction bilateral inguinal hernias
Plan / Procedure
Robotic assisted laparoscopic repair of bilateral inguinal hernias with mesh, possible open
Anesthesia/Sedation to be done by Anesthesia Provider: Yes
--- NOTE | 2025-06-21 09:01 | W.SUR.PREOP ---
Pre-Operative Surgical Note
-
I have examined this patient prior to the performance of the scheduled procedure.
The patient's condition is unchanged from the time of the current History and
Physical and the patient is able to undergo the scheduled procedure.
[2025-06-21] MEDS: DILAUDID 0.25 MG IV ×2 (13:26→13:48)
--- NOTE | 2025-06-21 14:11 | W.IMMPOSTOP ---
Addendum entered and electronically signed by Umang Nguyen MD 06/21/25 14:30:
#[id number]
Original Note:
Surgical Immed Post Op Note
-
Primary Surgeon: Umang Nguyen MD
Assisting Surgeon: JODIE Marley
Pre-op Diagnosis: Bilateral inguinal hernias
Post-op Diagnosis: Bilateral inguinal hernias; left indirect inguinal scrotal, right direct
Procedure Performed: Robotic assisted laparoscopic LOUIS repair bilateral inguinal hernias with mesh; 3D max extra-large left, 3D max large right
Modifier 22 -increased operative time substantially greater then typically required due to size of left inguinal scrotal hernia with increased operative technical difficulty adding an additional 90 minutes to the average operative time
for bilateral inguinal herniorrhaphy
Anesthesia Type: GETA +0.25% Marcaine
Specimen / Cultures: None
Estimated Blood Loss: 12 mL
Complications: None immediate
Operative Findings:
Reducible right inguinal hernia; direct defect. Right indirect and femoral spaces normal. Moderate lipoma right spermatic cord reduced and excised to facilitate mesh placement. 3D max large regular weight mesh repair secured to Luis E's ligament
with 2-0 Vicryl stitch x 2.
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 Left direct and femoral spaces normal. Modest lipoma spermatic cord reduced and excised to facilitate mesh placement. 3D max extra-large regular weight mesh repair secured to
Luis E's ligament with 2-0 Vicryl stitch x 2.
Increased operative time substantially greater than typically required for bilateral inguinal herniorrhaphy with an additional 90 minutes of operative time for the left side secondary to increased operative technical difficulty in the setting of a
large chronically incarcerated inguinal hernia with scrotal extension.
== END 2025-06-21 15:50 | disposition home or self-care (01) ==
LOC: SDS 06:35
PROVIDERS: ATTENDING PHYSICIAN Surgery; FAMILY PHYSICIAN Nurse Practitioner Adult Health
DX: K40.20 Bilateral inguinal hernia, without obstruction or gangrene, not specified as recurrent (principal)
CPT/HCPCS: 49650; 36415; 80048; 85027; 86850; 86900; 86901; C1781

== ENCOUNTER → 2025-07-12 11:32 | Outpatient (REF) | payer OTHER, SELFPAY ==
[2025-07-12 15:47] LABS: Hematocrit 36.0 % (39.0-52.0); Hemoglobin 11.8 g/dL (13.0-18.0); Mean Corp Hgb Conc. 32.8 g/dL (33.0-37.0); Mean Corpuscular Volume 105.0 fL (80.0-94.0); Nucleated Red Blood Cells % 0 % (-); Platelet Count 165 10^3/uL (130-400); Red Cell Dist. Width 13.2 % (11.5-14.5)
[2025-07-12 15:50] LABS: Iron 81 ug/dl (49-181)
[2025-07-12 16:00] LABS: Total Iron Binding Capacity 341 ug/dl (261-462)
[2025-07-12 16:27] LABS: Ferritin 226.0 ng/ml (17.9-464.0)
== END ==
LOC: HWRCS 11:32
PROVIDERS: ATTENDING PHYSICIAN Student in an Organized Health Care Education/Training Program; FAMILY PHYSICIAN Nurse Practitioner Adult Health; REFERRING PHYSICIAN Nurse Practitioner Primary Care
DX: I50.20 Unspecified systolic (congestive) heart failure (principal); D50.9 Iron deficiency anemia, unspecified
CPT/HCPCS: 36415; 82728; 83540; 83550; 85025; 93306

== ENCOUNTER 2025-08-01 15:33 | Emergency (ER) | payer OTHER, SELFPAY ==
[2025-08-01 16:34] VITALS: BMI 25.1
--- NOTE | 2025-08-01 16:36 | EDRN ---
Pt states he arrives for a lot of pain in R shoulder only. Pain this am excrucitating, unable to move at all. Pt had an ASA 325, 2 tylenol, could not move and sweating so gave him 1 oxys from recent surgery. Pt has very swollen R shoulder. pain
10/10 now
[2025-08-01 16:40] VITALS: BP 125/88
--- NOTE | 2025-08-01 16:58 | EDRN ---
Osbaldo VALADEZ in room w/ pt and spouse at this time. Sling applied for pt comfort.
[2025-08-01] MEDS: ROXICODONE 5 MG PO (17:07)
--- NOTE | 2025-08-01 17:26 | ED.GENMED ---
History of Present Illness
<MIRTA Boyle Jr. Last Filed: 08/02/25 00:33>
General
Chief Complaint: Musculo-Skeletal Complaint
Source: patient
Exam Limitations: none
Time Seen by Provider: 08/01/25 16:20
Nursing documentation reviewed up to this point in time: agreed with
History of Present Illness
History of Present Illness:
75-year-old male past medical history of A-fib currently on Eliquis, CHF CAD hypertension hyperlipidemia presenting to the emergency department today with concerns of right shoulder pain upon awakening this morning. Had some slight mobility issues
over the past few days but significantly worse this morning. Pain with any slight movement. Denies any fevers or systemic symptoms. Denies any chest pain shortness of breath nausea vomiting.
Past History
<MIRTA Boyle Jr. Last Filed: 08/02/25 00:33>
Past History
ED Past Medical History: CAD, HTN and Hypothyroidism
ED Past Surgical History: Cardiac and Orthopedic (Total left knee)
Social History
Tobacco: Non-smoker
Alcohol: None
Drug: None
Personal:
Living: with family
Employment: Retired
Review of Systems
<MIRTA Boyle Jr. Last Filed: 08/02/25 00:33>
Review of Systems
Allergies reviewed?: Yes
All Other Systems: ROS reviewed and negative except as documented in HPI and ROS
Phy Exam
<MITRA Boyle Jr. Last Filed: 08/02/25 00:33>
Physical Exam
Physical Exam:
GENERAL: Alert , in no apparent distress
EYE: pupils equal and reactive
NECK: Supple, no significant adenopathy.
ENT: o/p clr, mmm.
CARDIAC: Regular rate and rhythm .
LUNGS: Clear breath sounds bilaterally, no acute respiratory distress, no wheezes/rales/rhonchi
ABDOMEN: Soft, without focal tenderness, no r/g, no cvat
NEUROLOGICAL: Alert and oriented, no focal neuro deficits
SKIN: Warm and dry, skin intact.
MUSCULOSKELETAL: Significant swelling directly over the right shoulder at the deltoid region no involvement of the clavicle scapula or remainder of the arm. No redness or warmth. No tenderness to palpation but significant discomfort with any
movement. Well perfused.
PSYCH: Normal and appropriate interaction.
Course
<Phani Jimenez Jr., PA-C - Last Filed: 08/02/25 00:33>
Orders/Labs/Results
Orders:
Orders
08/01/25 15:33
Electrocardiogram (*1) Urgent
Reason for Study: Other
Other Reason for Exam: shoulder pain
08/01/25 15:34
EKG- Treatment ONCE
08/01/25 17:02
Oxycodone [Roxicodone] 5 mg .ROUTE .STK-MED ONE
Oxycodone/Acetaminophen [Percocet 5/325] 1 tablet PO NOW STA
CR Shoulder, Trauma - Right Urgent
Comment:
Reason For Exam: right shoulder pain
08/01/25 17:07
Oxycodone [Roxicodone] 5 mg PO NOW STA
08/01/25 19:09
CBC/With Diff [Complete Blood Count/With Diff] Urgent
CMP [Comprehensive Metabolic Panel] Urgent
08/01/25 19:10
Body Fluid Cell Count Urgent
What is the Body Fluid: joint
Date Specimen was Collected: 08/01/25
Time Specimen was Collected: 19:09
Comment: with DIFF
Body Fluid Crystals Urgent
What is the Body Fluid: joint
Date Specimen was Collected: 08/01/25
Time Specimen was Collected: 19:09
08/01/25 19:16
Fluid Culture with Gram Stain Urgent
WADE Source: Joint Fluid
Specimen Description:
Date Specimen was Collected: 08/01/25
Time Specimen was Collected: 19:09
Abnormal Lab Results
08/01/25
19:09
RBC 3.37 L 10^6/uL
(4.70-6.10)
Hgb 11.7 L g/dL
(13.0-18.0)
Hct 34.4 L %
(39.0-52.0)
MCV 102.1 H fL
(80.0-94.0)
MCH 34.7 H pg
(27.0-31.0)
MPV 10.5 H fL
(7.4-10.4)
Absolute Monos (auto) 1.0 H 10^3/uL
(0.1-0.6)
Monocytes % 13.5 H %
(1.7-9.3)
Sodium 132 L mmol/L
(135-145)
BUN 30 H mg/dl
(9-20)
Glucose 113 H mg/dl
(70-99)
Total Bilirubin 1.4 H mg/dl
(0.2-1.3)
08/01/25 19:09
08/01/25 19:09
Vital Signs
Initial and Last Documented VS:
Initial Vital Signs
Temp Pulse Resp Pulse Ox
97.8 F 76 18 98
08/01/25 15:34 08/01/25 15:34 08/01/25 15:34 08/01/25 15:34
Last Documented Vital Signs
Temp Pulse Resp BP Pulse Ox
97.8 F 78 16 116/81 97
08/01/25 15:34 08/01/25 18:40 08/01/25 18:40 08/01/25 18:40 08/01/25 18:40
<Oscar Diop DO - Last Filed: 08/01/25 18:30>
Orders/Labs/Results
Orders:
Orders
08/01/25 15:33
Electrocardiogram (*1) Urgent
Reason for Study: Other
Other Reason for Exam: shoulder pain
08/01/25 15:34
EKG- Treatment ONCE
08/01/25 17:02
Oxycodone [Roxicodone] 5 mg .ROUTE .STK-MED ONE
Oxycodone/Acetaminophen [Percocet 5/325] 1 tablet PO NOW STA
CR Shoulder, Trauma - Right Urgent
Comment:
Reason For Exam: right shoulder pain
08/01/25 17:07
Oxycodone [Roxicodone] 5 mg PO NOW STA
08/01/25 19:09
CBC/With Diff [Complete Blood Count/With Diff] Urgent
CMP [Comprehensive Metabolic Panel] Urgent
08/01/25 19:10
Body Fluid Cell Count Urgent
What is the Body Fluid: joint
Date Specimen was Collected: 08/01/25
Time Specimen was Collected: 19:09
Comment: with DIFF
Body Fluid Crystals Urgent
What is the Body Fluid: joint
Date Specimen was Collected: 08/01/25
Time Specimen was Collected: 19:09
08/01/25 19:16
Fluid Culture with Gram Stain Urgent
WADE Source: Joint Fluid
Specimen Description:
Date Specimen was Collected: 08/01/25
Time Specimen was Collected: 19:09
Abnormal Lab Results
08/01/25
19:09
RBC 3.37 L 10^6/uL
(4.70-6.10)
Hgb 11.7 L g/dL
(13.0-18.0)
Hct 34.4 L %
(39.0-52.0)
MCV 102.1 H fL
(80.0-94.0)
MCH 34.7 H pg
(27.0-31.0)
MPV 10.5 H fL
(7.4-10.4)
Absolute Monos (auto) 1.0 H 10^3/uL
(0.1-0.6)
Monocytes % 13.5 H %
(1.7-9.3)
Sodium 132 L mmol/L
(135-145)
BUN 30 H mg/dl
(9-20)
Glucose 113 H mg/dl
(70-99)
Total Bilirubin 1.4 H mg/dl
(0.2-1.3)
08/01/25 19:09
08/01/25 19:09
Vital Signs
Initial and Last Documented VS:
Initial Vital Signs
Temp Pulse Resp Pulse Ox
97.8 F 76 18 98
08/01/25 15:34 08/01/25 15:34 08/01/25 15:34 08/01/25 15:34
Last Documented Vital Signs
Temp Pulse Resp BP Pulse Ox
97.8 F 78 16 116/81 97
08/01/25 15:34 08/01/25 18:40 08/01/25 18:40 08/01/25 18:40 08/01/25 18:40
Procedures
<Phani Jimenez Jr. PA-C - Last Filed: 08/02/25 00:33>
Incision/Drainage/Joint Aspiration
Right Shoulder:
Anethesia: 1% Lidocaine
Preparation: cleaned with Hibiclens
Type of procedure: drain and aspiration
Nature of site: hematoma
Description of abscess: involves one area (joint right shoulder GH)
Loculations broken up: No
How much fluid was obtained?: number in mls (15)
Fluid description: bloody
Treatment: bandaid applied
<Phani Jimenez Jr., PA-C - Last Filed: 08/02/25 00:33>
MDM/Problems Addressed
MDM/Problems Addressed:
75-year-old male presenting to the emergency department today with concerns of right shoulder pain and significant swelling starting this morning. On arrival vital signs are normal patient no distress EKG showing A-fib but no acute changes
otherwise. Pain is very isolated to the shoulder and specifically reproduced with movement as well as visible overlying changes to the right shoulder. Does not appear to be consistent with referred pain. Joint was draining concerning significant
pain to the area to ensure there was no infection. This was sent for joint fluid analysis. However the blood that was drawn seem to be all blood. He did admit to significant physical activity to the right arm yesterday he is on blood thinner.
This is likely a hematoma from mild trauma. He was advised to rest and follow closely with orthopedics. Return precautions given.
<Phani Jimenez Jr., PA-C - Last Filed: 08/02/25 00:33>
*Pulse Oximetry
SaO2: 97
Oxygen Mode of Delivery: Room air
Patient hypoxic: no (97)
*Critical Care Note
Total Time (30-74mins, 75-104mins- exclusive of procedures): Not Applicable
ED Attending Note
<Phani Jimenez Jr., PA-C - Last Filed: 08/02/25 00:33>
-
Portions of this chart may have been created with voice recognition software.� Occasional wrong word or��sound alike� substitutions may have occurred due to the inherent limitations of voice recognition software.
<Oscar Diop DO - Last Filed: 08/01/25 18:30>
ED Attending Note
Patient seen and examined by attending physician: Yes
I performed the substantive portion of visit, reviewed & personally made and approve the management plan that is documented in note by myself or MARY.: Yes
ED Attending Note:
Note:
CHIEF COMPLAINT(S)
Shoulder pain
HISTORY OF PRESENT ILLNESS
The patient is a 75-year-old male presenting with shoulder pain. The patient expressed concern about the size of the affected area, describing it as 'bigger than normal.' A clinical evaluation suggests the presence of bursitis, with fluid
accumulation causing joint stiffness and significant pain. There is no indication of infection.
PAST MEDICAL AND SURGICAL HISTORY
The patient mentioned having undergone knee surgery by Dr. Tejada.
ADDITIONAL HISTORY OBTAINED FROM SOURCES OTHER THAN THE PATIENT
The patient has known orthopedic care from Dr. Tejada for his knees and is due to see Dr. Peguero for additional orthopedic concerns, including issues with his hands.
PHYSICAL EXAM
General: Alert, no acute distress.
Skin: Warm, dry.
Head: Normocephalic, atraumatic.
Neck: Supple, trachea midline.
Eye, Ears, Nose, Mouth and Throat: Oral mucosa moist.
Respiratory: Respirations are non-labored.
Gastrointestinal: Abdomen nondistended.
Back: Normal range of motion, Normal alignment.
Musculoskeletal: Effusion and tenderness present in right shoulder region.
Neurological: Alert and oriented to person, place, time, and situation, No focal neurological deficit observed.
Psychiatric: Cooperative, appropriate mood & affect.
PLAN
Aspiration of fluid from the shoulder area is planned to alleviate pain and stiffness. Follow-up with an community education specialist for further evaluation and management of bursitis is suggested.
DIFFERENTIAL DIAGNOSIS
The Differential Diagnosis includes, in no particular order and is not limited to:
1. Bursitis
2. Rotator cuff tear
3. Tendinitis
4. Osteoarthritis
5. Rheumatoid arthritis
6. Shoulder impingement syndrome
7. Labral tear
8. Adhesive capsulitis
9. Septic arthritis
10. Gout or pseudogout
Discharge Plan
Departure
Patient Disposition: Home (Routine Discharge)
Date of Disposition: 08/01/25
Time of Disposition: 19:55
Patient with high blood pressure during this ER visit?: No
Condition: Good
Covid-19: Not Applicable
Discharge Problem:
Acute shoulder pain
Instructions: Sprain (DC)
Prescriptions:
No Action
isosorbide mononitrate 30 mg Tablet Extended Release 24 Hr
30 mg PO DAILY
montelukast [Singulair] 10 mg Tablet
10 mg PO HSPRN PRN (Reason: allergies)
Eliquis 5 mg Tablet
5 mg PO BID Qty: 0 0RF
fluticasone furoate-vilanterol [Breo Ellipta] 100-25 mcg/dose Blister With Device
1 inh INHALATION R DAILY Qty: 0 0RF
furosemide [Lasix] 40 mg tablet
40 mg PO DAILY Qty: 30 2RF
pantoprazole 40 mg Tablet,Delayed Release (Dr/Ec)
40 mg PO DAILY 30 Days Qty: 30 2RF
ascorbic acid (vitamin C) [Vitamin C] 1,000 mg Tablet
1,000 mg PO Q48H@0800
therapeutic multivitamin Tablet
1 tab PO Q48H@0800
spironolactone 25 mg Tablet
25 mg PO DAILY
triamcinolone acetonide [Nasacort] 55 mcg Aerosol,[place]
2 spray INTRANASAL HSPRN PRN (Reason: allergies)
ezetimibe 10 mg Tablet
10 mg PO DAILY
cholecalciferol (vitamin D3) 50 mcg (2,000 unit) Tablet
50 mcg PO Q48H@0800
vitamin E (dl, acetate) 180 mg (400 unit) Capsule
180 mg PO Q48H@0800
Vitamin B Complex 50
1 tab PO Q48H@0800
vitamin A
15 mg PO Q48H@0800
atorvastatin 40 mg tablet
40 mg PO SUWE@2200
metoprolol succinate [Toprol XL] 50 mg tablet extended release 24 hr
50 mg PO HS
aspirin 81 mg Tablet
81 mg PO DAILY
Rx Instructions:
patient has been taking since off of the Eliquis per Dr. Nguyen's instructions.
polyethylene glycol 3350 [Miralax] 17 gram/dose powder
4 g PO DAILY PRN (Reason: Constipation) Qty: 119 0RF
Rx Instructions:
start a laxative such as MIRALAX on day 2 after surgery if no bowel movement yet as long as no nausea/vomiting and passing gas
oxycodone 5 mg tablet
5 mg PO Q4HPRN PRN (Reason: breakthrough/severe pain) Qty: 10 0RF
acetaminophen [Tylenol Extra Strength] 500 mg tablet
1,000 mg PO Q6HPRN PRN (Reason: mild pain) Qty: 1 0RF
Referrals:
Taye Gillespie CRNP [Family Provider, Internal Medicine]
Ron Peguero MD [Active, Orthopedics] - Follow up in 2-3 days
Activity Restrictions/Additional Instructions:
You came to the emergency department today with concerns of a shoulder discomfort. Here we did a joint fluid assessment that did not show evidence of infection. This is likely from a traumatic injury. Please follow closely with orthopedics.
Return for any worsening, new or concerning symptoms.
Interventions
Interventions:
*Risk Screen - Suicide Last Done: 08/01/25 15:34
*General Assessment Last Done: 08/01/25 16:35
*Neglect/Abuse Screening Last Done: 08/01/25 16:38
*ED- Fall Risk Assessment Last Done: 08/01/25 16:35
*ED COVID-19 Vaccine History Last Done: 08/01/25 16:34
*ED Influenza Vaccine History Last Done: 08/01/25 16:35
*Nursing Disposition Last Done: 08/01/25 19:40
ED-Musculoskeletal Assessment Last Done: 08/01/25 16:38
Discharge Date and Time
Discharge Date/Time: 08/01/25 19:30
Print Language: FRENCH
--- NOTE | 2025-08-01 17:45 | EDRN ---
Pt developed nausea post roxicodone and administered 3 packs of saltines and cup of water.
[2025-08-01 18:40] VITALS: BP 116/81
[2025-08-01 19:41] LABS: Hematocrit 34.4 % (39.0-52.0); Hemoglobin 11.7 g/dL (13.0-18.0); Mean Corp Hgb Conc. 34.0 g/dL (33.0-37.0); Mean Corpuscular Volume 102.1 fL (80.0-94.0); Nucleated Red Blood Cells % 0 % (-); Platelet Count 202 10^3/uL (130-400); Red Cell Dist. Width 13.5 % (11.5-14.5)
[2025-08-01 20:09] LABS: ALT (SGPT) 38 U/L (0-50); AST (SGOT) 45 U/L (17-59); Albumin 4.3 g/dl (3.5-5.0); Alkaline Phosphatase 98 U/L (38-126); Blood Urea Nitrogen 30 mg/dl (9-20); Calcium 9.6 mg/dl (8.4-10.2); Carbon Dioxide 24 mmol/L (22-30); Chloride 101 mmol/L (98-107); Estimated Creatinine Clearance 61 ml/min; Glucose 113 mg/dl (70-99); Potassium 4.1 mmol/L (3.5-5.1); Sodium 132 mmol/L (135-145); Total Protein 7.1 g/dl (6.3-8.2); eGFR > 60.00
[2025-08-01 20:29] LABS: Body Fluid Second Tech EYM
== END 2025-08-01 19:30 | disposition home or self-care (01) ==
LOC: EMR 15:33
PROVIDERS: Physician Assistant; EMERGENCY PHYSICIAN Emergency Medicine; FAMILY PHYSICIAN Nurse Practitioner Adult Health
DX: M25.511 Pain in right shoulder (principal); I25.10 Atherosclerotic heart disease of native coronary artery without angina pectoris; I48.91 Unspecified atrial fibrillation; I11.0 Hypertensive heart disease with heart failure; I50.9 Heart failure, unspecified; E78.5 Hyperlipidemia, unspecified; E03.9 Hypothyroidism, unspecified; Z79.01 Long term (current) use of anticoagulants; Z79.82 Long term (current) use of aspirin
CPT/HCPCS: 99284; 20610; 73030; 80053; 85025; 87015; 87070; 87205; 89051; 89060; 93005

== ENCOUNTER 2025-08-12 16:57 | Emergency (ER) | payer OTHER, SELFPAY ==
[2025-08-12] VITALS (7 sets, daily range): BP systolic 105–142; BP diastolic 82–96
--- NOTE | 2025-08-12 17:46 | ED.GENMED ---
History of Present Illness
General
Chief Complaint: Failure to Thrive
Time Seen by Provider: 08/12/25 17:30
History of Present Illness
History of Present Illness:
75-year-old male presents to the emergency department for evaluation of general malaise and weakness. He is concerned because his [employer] mobile daphne indicated he was in atrial fibrillation today. He denies chest pain but does report some exertional
dyspnea. He was seen in this emergency department just over 1 week ago for nontraumatic right shoulder pain and found to have a hemarthrosis. He has since followed up with orthopedics and had an aspiration and steroid injection, was prescribed
tramadol. Feels as though his nausea and poor appetite have worsened since starting the tramadol. Denies any fever or chills.
Past History
Past History
ED Past Medical History: CAD, HTN and Hypothyroidism
ED Past Surgical History: Cardiac and Orthopedic (Total left knee)
Social History
Tobacco: Non-smoker
Alcohol: None
Drug: None
Personal:
Living: with family
Employment: Retired
Review of Systems
Review of Systems
Allergies reviewed?: Yes
All Other Systems: ROS reviewed and negative except as documented in HPI and ROS
Phy Exam
Physical Exam
Physical Exam:
GEN: Well appearing, NAD, WDWN
Eyes: PERRLA, EOMs intact, no scleral icterus
HENT: NCAT, oral mucosa moist, no JVD, no cervical adenopathy.
Lungs: CTAB, no wheezes, rales, rhonchi, normal chest wall excursion
Cardiac: Irregular, controlled rate mild systolic murmur
Abdomen: S, NT, ND, NABS, no masses or hepatosplenomegaly
Neuro: AO x 3, no focal deficits to BUE/BLE, normal sensation throughout
MSK: No gross deformity or ecchymosis. Moderate bilateral lower extremity edema
Skin: No rashes, petechiae. Normal color, no pallor or jaundice.
Psych: Calm, cooperative, proper hygiene
Course
Orders/Labs/Results
Orders:
Orders
08/12/25 17:03
Electrocardiogram (*1) Urgent
Reason for Study: Fatigue / Weakness
EKG- Treatment ONCE
08/12/25 17:44
CR Chest - 2 Views Urgent
Comment:
Reason For Exam: SOB
08/12/25 17:58
Complete Blood Count/With Diff Urgent
Comprehensive Metabolic Panel Urgent
NT-proBNP Urgent
Troponin I Urgent
08/12/25 18:56
Furosemide [Lasix] 40 mg IV NOW STA
Abnormal Lab Results
08/12/25
17:58
WBC 11.3 H 10^3/uL
(4.8-10.8)
RBC 3.15 L 10^6/uL
(4.70-6.10)
Hgb 10.9 L g/dL
(13.0-18.0)
Hct 32.9 L %
(39.0-52.0)
MCV 104.4 H fL
(80.0-94.0)
MCH 34.6 H pg
(27.0-31.0)
MPV 11.1 H fL
(7.4-10.4)
Abs Immat Gran (auto) 0.1 H 10^3/uL
(0-0.05)
Absolute Neuts (auto) 8.6 H 10^3/uL
(1.4-6.5)
Absolute Lymphs (auto) 1.1 L 10^3/uL
(1.2-3.4)
Absolute Monos (auto) 1.5 H 10^3/uL
(0.1-0.6)
Neutrophils % 76.3 H %
(42.2-75.2)
Lymphocytes % 10.0 L %
(20.5-51.1)
Monocytes % 13.0 H %
(1.7-9.3)
BUN 42 H mg/dl
(9-20)
Glucose 114 H mg/dl
(70-99)
Total Bilirubin 1.4 H mg/dl
(0.2-1.3)
08/12/25 17:58
08/12/25 17:58
Vital Signs
Initial and Last Documented VS:
Initial Vital Signs
Temp Pulse Resp BP Pulse Ox
98.1 F 88 16 142/89 95
08/12/25 17:00 08/12/25 17:00 08/12/25 17:00 08/12/25 17:00 08/12/25 17:00
Last Documented Vital Signs
Temp Pulse Resp BP Pulse Ox
98.1 F 85 19 119/89 99
08/12/25 17:00 08/12/25 19:30 08/12/25 19:30 08/12/25 19:20 08/12/25 19:30
MDM/Problems Addressed
MDM/Problems Addressed:
Patient does appear modestly volume overloaded however has no respiratory insufficiency and no hypoxia that would warrant admission. I will briefly uptitrate his diuretic therapy and refer him for close cardiology follow-up given the volume
overload however I suspect his poor appetite and nausea is mostly triggered by his recent tramadol use and I have recommended he discontinue this.
Comment
Comment:
EKG independently interpreted by me shows a rate controlled atrial fibrillation with no ischemic change
*Pulse Oximetry
SaO2: 98
Oxygen Mode of Delivery: Room air
Patient hypoxic: no
*Critical Care Note
Total Time (30-74mins, 75-104mins- exclusive of procedures): Not Applicable
ED Attending Note
-
Portions of this chart may have been created with voice recognition software.� Occasional wrong word or��sound alike� substitutions may have occurred due to the inherent limitations of voice recognition software.
Discharge Plan
Departure
Patient Disposition: Home (Routine Discharge)
Date of Disposition: 08/12/25
Time of Disposition: 19:32
Patient with high blood pressure during this ER visit?: No
Discharge Problem:
Hypervolemia, Adverse effects of medication
Instructions: *CBC Heart Failure Instructions
Prescriptions:
No Action
isosorbide mononitrate 30 mg Tablet Extended Release 24 Hr
30 mg PO DAILY
montelukast [Singulair] 10 mg Tablet
10 mg PO HSPRN PRN (Reason: allergies)
Eliquis 5 mg Tablet
5 mg PO BID Qty: 0 0RF
fluticasone furoate-vilanterol [Breo Ellipta] 100-25 mcg/dose Blister With Device
1 inh INHALATION R DAILY Qty: 0 0RF
furosemide [Lasix] 40 mg tablet
40 mg PO DAILY Qty: 30 2RF
pantoprazole 40 mg Tablet,Delayed Release (Dr/Ec)
40 mg PO DAILY 30 Days Qty: 30 2RF
ascorbic acid (vitamin C) [Vitamin C] 1,000 mg Tablet
1,000 mg PO Q48H@0800
therapeutic multivitamin Tablet
1 tab PO Q48H@0800
spironolactone 25 mg Tablet
25 mg PO DAILY
triamcinolone acetonide [Nasacort] 55 mcg Aerosol,[place]
2 spray INTRANASAL HSPRN PRN (Reason: allergies)
ezetimibe 10 mg Tablet
10 mg PO DAILY
cholecalciferol (vitamin D3) 50 mcg (2,000 unit) Tablet
50 mcg PO Q48H@0800
vitamin E (dl, acetate) 180 mg (400 unit) Capsule
180 mg PO Q48H@0800
Vitamin B Complex 50
1 tab PO Q48H@0800
vitamin A
15 mg PO Q48H@0800
atorvastatin 40 mg tablet
40 mg PO SUWE@2200
metoprolol succinate [Toprol XL] 50 mg tablet extended release 24 hr
50 mg PO HS
aspirin 81 mg Tablet
81 mg PO DAILY
Rx Instructions:
patient has been taking since off of the Eliquis per Dr. Nguyen's instructions.
polyethylene glycol 3350 [Miralax] 17 gram/dose powder
4 g PO DAILY PRN (Reason: Constipation) Qty: 119 0RF
Rx Instructions:
start a laxative such as MIRALAX on day 2 after surgery if no bowel movement yet as long as no nausea/vomiting and passing gas
oxycodone 5 mg tablet
5 mg PO Q4HPRN PRN (Reason: breakthrough/severe pain) Qty: 10 0RF
acetaminophen [Tylenol Extra Strength] 500 mg tablet
1,000 mg PO Q6HPRN PRN (Reason: mild pain) Qty: 1 0RF
Referrals:
Taye Gillespie CRNP [Family Provider, Internal Medicine]
Activity Restrictions/Additional Instructions:
Increase your Lasix to 60 mg daily, 1.5 tablets each day for a total of 3 days. Take this Saturday and Saturday and return to your normal dose Saturday. Stop using your tramadol
Interventions
Interventions:
*Risk Screen - Suicide Last Done: 08/12/25 17:00
*General Assessment Last Done: 08/12/25 18:00
*Neglect/Abuse Screening Last Done: 08/12/25 17:00
*ED- Fall Risk Assessment Last Done: 08/12/25 18:00
*ED COVID-19 Vaccine History Last Done: 08/12/25 17:33
*ED Influenza Vaccine History Last Done: 08/12/25 17:33
*Nursing Disposition Last Done: 08/12/25 19:47
Discharge Date and Time
Discharge Date/Time: 08/12/25 19:50
Print Language: SLOV[place]
[2025-08-12 18:08] LABS: Hematocrit 32.9 % (39.0-52.0); Hemoglobin 10.9 g/dL (13.0-18.0); Mean Corp Hgb Conc. 33.1 g/dL (33.0-37.0); Mean Corpuscular Volume 104.4 fL (80.0-94.0); Nucleated Red Blood Cells % 0 % (-); Platelet Count 146 10^3/uL (130-400); Red Cell Dist. Width 14.2 % (11.5-14.5)
[2025-08-12 18:31] LABS: ALT (SGPT) 38 U/L (0-50); AST (SGOT) 35 U/L (17-59); Albumin 4.0 g/dl (3.5-5.0); Alkaline Phosphatase 70 U/L (38-126); Blood Urea Nitrogen 42 mg/dl (9-20); Calcium 8.9 mg/dl (8.4-10.2); Carbon Dioxide 24 mmol/L (22-30); Chloride 106 mmol/L (98-107); Glucose 114 mg/dl (70-99); Potassium 4.7 mmol/L (3.5-5.1); Sodium 136 mmol/L (135-145); Total Protein 6.5 g/dl (6.3-8.2); eGFR > 60.00
[2025-08-12 18:49] LABS: Troponin I 0.018 ng/ml
[2025-08-12] MEDS: LASIX 40 MG IV (19:16)
== END 2025-08-12 19:50 | disposition home or self-care (01) ==
LOC: EMR 16:57
PROVIDERS: Physician Assistant; EMERGENCY PHYSICIAN Emergency Medicine; FAMILY PHYSICIAN Nurse Practitioner Adult Health
DX: E87.70 Fluid overload, unspecified (principal); T50.995A Adverse effect of other drugs, medicaments and biological substances, initial encounter; X58.XXXA Exposure to other specified factors, initial encounter; I48.91 Unspecified atrial fibrillation; I25.10 Atherosclerotic heart disease of native coronary artery without angina pectoris; I10 Essential (primary) hypertension; E03.9 Hypothyroidism, unspecified
CPT/HCPCS: 99285; 96374; 71046; 80053; 83880; 84484; 85025; 93005

== ENCOUNTER → 2025-09-06 12:22 | Outpatient (REF) | payer OTHER, SELFPAY | LOC: HWRAD 12:22 | PROVIDERS: ATTENDING PHYSICIAN Orthopaedic Surgery Hand Surgery; FAMILY PHYSICIAN Nurse Practitioner Adult Health | DX: M25.511 Pain in right shoulder (principal) | CPT/HCPCS: 73200 ==